=== PATIENT | female | born 1940 | race Caucasian/White ===

== ENCOUNTER 2018-03-26 18:36 | Emergency (ER) | payer MEDICARE, OTHER, SELFPAY ==
[2018-03-26 18:37] VITALS: BP 142/73; PULSE 90; RESP 16; TEMP 36.7; O2SAT 93; BMI 38.6
--- NOTE | 2018-03-26 19:26 | ED.VISSUMM ---
- ER Visit Summary Date of Service: 03/26/18 Chief Complaint: Left leg redness History of Present Illness: The patient is a 78 F presenting with left leg redness times 2 days. She complains of mild calf pain. She is able to ambulate. She has redness to the anterior aspect of her left leg. She denies fever. Denies chest pain or shortness of breath. Denies similar complaints in the past. Physical Examination: Vitals are stable. Patient is afebrile. Alert no acute distress. HEENT exam is unremarkable. Lungs are clear and equal bilaterally. Heart is regular rate and rhythm. Abdomen is soft nontender nondistended. Extremities mild left calf tenderness, mild anterior lower extremity erythema with warmth, normal DP/PT pulses Skin is warm and dry. No focal neurologic deficit. Remainder of exam is unremarkable. Emergency Department Course and Treatment: Venous Doppler shows no evidence of DVT. Patient is given Keflex and a prescription for Keflex. She has an appointment with her primary care physician on Sunday. She is advised to keep this appointment. She is advised to return to the ED for any worsening complaints. Disposition: Discharge home Impression: Left lower extremity cellulitis This note was generated with [employer] dictation software. It may contain incorrect words, spelling, and punctuation that were not noted in review of the chart prior to signing ED Disposition - Plan for ED Patient: Chief Complaint: Cellulitis Referrals: Janice Nichols MD [Primary Care Provider] -
--- NOTE | 2018-03-26 19:29 | US_ITS ---
STUDY: VENOUS DOPPLER ULTRASOUND - LEFT LOWER EXTREMITY REASON FOR EXAM: Female, 78 years old. Left lower extremity redness. TECHNIQUE: Ultrasound evaluation of the deep vein system to include plaza-scale imaging and compression was performed. Plaza-scale imaging and Doppler sonographic evaluation, including duplex spectral analysis and qualitative color flow sonography, was performed. COMPARISON: None. FINDINGS: Common Femoral Vein: Normal compression, spontaneity and augmentation. Normal color Doppler. Common Femoral Vein/Greater Saphenous Junction: Normal compression, spontaneity and augmentation. Normal color Doppler. Femoral Proximal: Normal compression, spontaneity and augmentation. Normal color Doppler. Femoral Middle: Normal compression, spontaneity and augmentation. Normal color Doppler. Femoral Distal: Normal compression, spontaneity and augmentation. Normal color Doppler. Popliteal Vein: Normal compression, spontaneity and augmentation. Normal color Doppler. Posterior Tibial Vein: Normal compression. Peroneal Vein: Normal compression. US/Venous Duplex Imag/Limited/Uni IMPRESSION: No demonstrated deep vein thrombosis. Electronically Signed: Katharina Madrid MD at 20:14 EDT Tel , Service support ,
--- NOTE | 2018-03-26 20:35 | ED.DEP ---
ED Disposition - Plan for ED Patient: Chief Complaint: Cellulitis Instructions: Discharge Instructions for Cellulitis Prescriptions: Cephalexin [Keflex] 500 mg PO Q6 #40 capsule Referrals: Janice Nichols MD [Primary Care Provider] -
[2018-03-26] MEDS: Cephalexin 250 MG Capsule 500 MG PO (20:38)
[2018-03-26 20:41] VITALS: PULSE 76; RESP 18
== END 2018-03-26 20:42 | disposition home or self-care (01) ==
PROVIDERS: Emergency Provider Emergency Medicine; Family Provider Family Medicine; PCP Family Medicine
DX: L03.116 Cellulitis of left lower limb (principal); M79.662 Pain in left lower leg; I10 Essential (primary) hypertension; Z79.899 Other long term (current) drug therapy
CPT/HCPCS: 93971; 99283

== ENCOUNTER → 2018-04-01 09:58 | Outpatient (CLI) | payer MEDICARE, OTHER, SELFPAY ==
[2018-04-01 12:54] LABS: Anion Gap 7 (5-15); BUN 17 mg/dL (7-18); BUN/Creat Ratio 21.7 RATIO (10-20); Calcium,Total 8.8 mg/dL (8.5-10.1); Chloride 105 mmol/L (98-107); Cholesterol 156 mg/dL (200); Creatinine, Serum 0.78 mg/dL (0.55-1.02); EST Glomerular Filtration Rate 75 mL/min (>60); Est Glom Filt Rate - Afr Amer 91 mL/min (>60); Glucose 90 mg/dL (74-106); High Density Lipoprotein 45 mg/dL; Potassium 4.1 mmol/L (3.5-5.1); Sodium Level 141 mmol/L (136-145); Thyroid Stim Hormone (TSH) 2.53 uIU/mL (0.358-3.74); Triglycerides 113 mg/dL; Very Low Density Lipoprotein 23 mg/dL (5-40)
== END ==
PROVIDERS: Family Provider Family Medicine; PCP Family Medicine; Visit Provider Family Medicine
DX: I10 Essential (primary) hypertension (principal); E03.9 Hypothyroidism, unspecified
CPT/HCPCS: 36415; 80048; 80061; 84436; 84443

== ENCOUNTER → 2018-04-04 08:43 | Outpatient (CLI) | payer MEDICARE, OTHER, SELFPAY ==
--- NOTE | 2018-04-04 08:44 | BI_ITS ---
MAMMOGRAPHY - BILATERAL SCREENING REASON FOR EXAM: Female, 78 years old. Routine annual screening examination. PERTINENT HISTORY: Sister with breast cancer. TECHNIQUE: Digital bilateral breast berenice (3D mammographic acquisition) in the CC and MLO projections. 2-D mediolateral oblique (MLO) and craniocaudad (CC) views of both breasts were obtained. CAD: Full Field Digital Mammography with Computer Added Detection was performed. COMPARISON: Comparison is made with prior study dated March 21, 2017 and March 20, 2016. FINDINGS: Breast Composition: The breasts are almost entirely fatty. There are no dominant masses or suspicious calcifications. Stable 4 mm well-defined nodule in the anterior medial portion of the left breast. Stable appearance of the small bilateral axillary lymph nodes. No other significant abnormalities are identified. There has been no significant change since the prior study. BI/SCREENING MAMM (CAD), BILAT IMPRESSION: Stable bilateral screening mammogram. Yearly follow-up mammogram recommended. (A) ASSESSMENT CATEGORY: BIRADS Category 2: Benign. A letter regarding these results will be sent to the patient by the facility within 30 days. Approximately 10% of breast cancers are not detected by mammography. A normal mammogram should not delay biopsy of a clinically suspicious abnormality. [id number] Electronically Signed: Devaughn Bruno MD at 9:51 EDT Tel [phone], Service support ,
== END ==
PROVIDERS: Family Provider Family Medicine; PCP Family Medicine; Referring Provider Family Medicine; Visit Provider Family Medicine
DX: Z12.31 Encounter for screening mammogram for malignant neoplasm of breast (principal)
CPT/HCPCS: 77063; 77067

== ENCOUNTER 2018-04-26 02:48 | Observation (INO) | payer MEDICARE, OTHER, SELFPAY ==
[2018-04-26] VITALS (18 sets, daily range): BP systolic 136–185; BP diastolic 51–89; PULSE 71–105; RESP 16–20; TEMP 36.3–37.4; O2SAT 93–98; BMI 38.6; BMI 37.4
--- NOTE | 2018-04-26 02:51 | ED.RN ---
RN CALLED FOR EKG, PULLED OLD EKGS FOR
--- NOTE | 2018-04-26 02:57 | EKG12_ITS ---
Test Reason : CP Blood Pressure : / mmHG Vent. Rate : 106 BPM Atrial Rate : 106 BPM P-R Int : 194 ms QRS Dur : 088 ms QT Int : 340 ms P-R-T Axes : 056 -13 109 degrees QTc Int : 451 ms Sinus tachycardia Inferior infarct , age undetermined Abnormal ECG Confirmed by MAHAD ANG, CHRIS ([id number]), editor magazine MARK SANZ ([id number]) on 05/01/2018 11:27:41 AM Referred By: FLACA Confirmed By:CHRIS TOBIN MD
--- NOTE | 2018-04-26 02:57 | CT_ITS ---
HISTORY: CHEST PAIN RADIATING INTO BACK SINCE 10 PM LAST NIGHT BUT WORSE THIS AM,ELEVATED BP AND HEART RATEHX:HTN,GERD,HYPOTHYROID TECHNIQUE: Helically acquired images were obtained of the chest following IV contrast as per pulmonary angiogram protocol with 3D reconstructions. A radiation dose optimization technique was used for this scan. IV Contrast dosage and agent: 100 cc Isovue-370 contrast COMPARISON: None FINDINGS: The main, segmental, and visualized subsegmental pulmonary arteries show normal opacification and appearance. No PE. Thoracic aorta is atherosclerotic and normal in caliber. No aneurysm. No pericardial effusion. Borderline cardiomegaly. Multiple mediastinal lymph nodes including involvement of the prevascular, and AP window regions with lymph nodes borderline enlarged measuring up to 1.1 cm in the short axis. Left hilar borderline lymph nodes, as well. Both lungs show widespread mosaic attenuation as seen with air trapping/bronchiolitis. Subpleural interstitial scarring within the left upper lobe. Right upper lobe low-grade infiltrate or scarring. No pleural effusion. No bronchiectasis. CT/CTA Chest W/WO Contrast IMPRESSION: 1. No CT evidence of pulmonary embolic disease. Borderline cardiomegaly. 2. Bilateral mosaic lung attenuation in keeping with air trapping/bronchiolitis together with subpleural mild interstitial scarring. 3. Right upper lobe patchy infiltrate or scarring. 4. Borderline enlarged mediastinal and left outer lymph nodes. Individualized dose optimization techniques were used for this CT. at 0405 Reported and signed by: Jairo Power MD Electronically Signed: Jairo Power, at 4:03 EST Tel , Service support ,
--- NOTE | 2018-04-26 03:03 | ED.DCSUM_ITS ---
- ER Visit Summary Date of Service: 04/26/18 Chief Complaint: Chest pain History of Present Illness: The patient is a 78 F who presents with a 5-hour history of chest pain that she describes as sharp stabbing aching and pressure- like all together. She claims of severe pain radiating to her back. It eased up quite a bit upon EMS arrival. She received nitroglycerin and aspirin per EMS. Her symptoms are only mild now. Other than the radiation into her back she has no other symptoms. She has no breathing difficulty, she has no cough or congestion. She has no abdominal pain. No recent fever or chills. Physical Examination: Not appear in acute distress. She is conversing and laughing with the paramedics and nursing staff as I walk in Moist mucous membranes, no obvious facial deformity No C-spine tenderness supple neck. Regular rate and rhythm without any obvious murmurs. Pulses are equal in all 4 extremities Clear lungs bilaterally speaking in full sentences without any obvious respiratory distress Abdomen soft and nontender no guarding or rebound Moves all extremities without any difficulty or pain. Skin does not show any obvious rashes or lesions, no trauma. Alert oriented ?3 with no gross focal deficit Emergency Department Course and Treatment: Due to the radiation to her back I did a CT angiogram which was negative. Troponin and EKG were unremarkable. Because of the radiation to her back I also did a lipase and LFTs are on entire workup was negative. She appears well and improved with 2 mg of morphine and she is now asymptomatic. I believe she needs a cardiac workup inpatient. I will admit. Admit in stable condition Impression: Chest pain This note was generated with [employer] dictation software. It may contain incorrect words, spelling, and punctuation that were not noted in review of the chart prior to signing ED Disposition - Plan for ED Patient: Chief Complaint: Chest Pain Referrals: Janice Nichols MD [Primary Care Provider] -
[2018-04-26] MEDS: Ondansetron 4 MG/2 ML Vial IV (03:06)
[2018-04-26] MEDS: Morphine 2 MG/ML Syringe IV (03:06)
[2018-04-26 03:08] LABS: International Normalized Ratio 1.1; Prothrombin Time (Protime)PT. 13.7 SECONDS (11.7-14.9)
[2018-04-26 03:10] LABS: Absolute Lymphocyte Count 1.19 X10^3/ul (0.83-4.51); Absolute Neutrophil Count 4.2 X10^3/uL (2.0-7.7); Basophil# 0.04 X10^3/uL; Basophil% 0.6 % (0-1); Eosinophil# 0.41 X10^3/uL; Eosinophils% 6.5 % (0-5); Hematocrit 42.9 % (37-47); Hemoglobin 14.2 g/dl (12.0-15.0); Lymphocyte # 1.19 X10^3/ul (4.0); Lymphocyte % 18.8 % (19-41); Mean Corp Hgb Conc 33.1 g/gl (32-36); Mean Corpuscular Volume 90.5 fL (81-99); Monocyte# 0.44 X10^3/uL; Neutrophil # 4.24 X10^3/uL (2.7-7.7); Neutrophil % 66.9 % (47-70); Platelet Count 146 K/mm3 (150-450); RBC Distribution Width CV 14.1 % (11.6-14.6); RBC Distribution Width SD 46.3 fl (35.1-43.9); Red Blood Count 4.74 M/mm3 (4.2-5.4); White Blood Count 6.3 K/mm3 (4.4-11.0)
[2018-04-26 03:11] LABS: POSITIVE COUNT NO; POSITIVE DIFFERENTIAL NO; POSITIVE MORPHOLOGY NO
[2018-04-26 03:25] LABS: Anion Gap 10 (5-15); BUN 23 mg/dL (7-18); BUN/Creat Ratio 30.5 RATIO (10-20); Calcium,Total 8.5 mg/dL (8.5-10.1); Chloride 108 mmol/L (98-107); Creatinine, Serum 0.75 mg/dL (0.55-1.02); EST Glomerular Filtration Rate 79 mL/min (>60); Est Glom Filt Rate - Afr Amer 95 mL/min (>60); Glucose 129 mg/dL (74-106); Potassium 3.6 mmol/L (3.5-5.1); Sodium Level 143 mmol/L (136-145); Thyroid Stim Hormone (TSH) 3.75 uIU/mL (0.358-3.74)
[2018-04-26 03:46] LABS: AST(SGOT) 25 U/L (15-37); Alanine Aminotransfer ALT/SGPT 30 U/L (13-56); Albumin, Serum 3.8 g/dL (3.2-5.0); Alkaline Phosphatase 99 U/L (45-117); Bilirubin, Direct 0.13 mg/dL (0.00-0.30); Globulin 3.7 g/dL (2.2-4.2); Lipase 72 U/L (73-393); Protein, Total 7.5 g/dL (6.4-8.2)
--- NOTE | 2018-04-26 04:22 | PCM.HP.STD ---
Problem List (1) Chest pain Status: Acute History of Present Illness Date of Admission: 04/26/18 Chief Complaint: chest pain The patient is a 78 year old F with a significant history of hypertension and hypothyroidism who presented with excruciating progressively worsening chest pain that started 5 hours prior to her presentation at the emergency departments. Her symptoms started while she was at rest. She describes the pain as heaviness and pressure. The pain radiated to her back. Associated with symptoms is nausea without vomiting; and anxiety. Nitroglycerin given by the squad relieved her chest pain. Also, she reports that her chest pain was relieved when after an EKG paramedics told her that she was not having a heart attack. She denies any aggravating factor. Also patient had 3 bowel movements close to when she had her chest pain; and that was unusual for her. She ate light food about 5 hours before her symptoms started. She has no personal history of heart disease. However, she reported her father had open heart surgery when he was in his early sixties. His brother had open heart surgery when he was in his late 60s. And she has multiple uncles that have had open heart surgeries. Further; her cousin from heart attack at ager 65. Past Medical History Medical History: Medical History (Last Updated 04/26/18 @ 05:17 by Osmani Mathew MD) Hypothyroidism E03.9 HTN (hypertension) I10 Allergies meperidine [From Demerol] Allergy (Verified 04/26/18 02:53) I JUST GO GOOFY Home Medications: Ambulatory Orders Medication Instructions Recorded Amlodipine [Norvasc] 10 mg PO DAILY 03/26/18 Levothyroxine [Synthroid] 50 mcg PO DAILY 03/26/18 Loratadine [Claritin] 10 mg PO DAILY 03/26/18 Surgical History: hysterectomy, total knee arthroplasty - total knee replacement on right side; and partial knee replacement on the left. Lives: Spouse/ Significant Other Smoking Status: Never smoker Alcohol: Occasional - *Family History Maternal History Items: Heart Disease Paternal History Items: Heart Disease Review of Systems Constitutional: Denies: Chills, Fever, Weight Change HEENT: Denies: Head Aches, Sinus Congestion, Sinus Drainage Cardiovascular: Reports: Chest Pain. Denies: Palpitations Respiratory: Denies: Cough, Shortness of breath at rest, Sputum production Gastrointestinal: Reports: Nausea. Denies: Abdominal Pain, Vomiting Genitourinary: Denies: Dysuria Musculoskeletal: Denies: Joint Pain, Joint Tenderness Skin: Denies: Rash, Wounds Neurological: Denies: Numbness, Tingling, Focal weakness Psychiatric: Denies: Anxiety, Depression, Homicidal Ideations, Suicidal Ideations Hematologic/ Lymphatic: Denies: Easy Bruising, Easy Bleeding VTE Information - Inpt Only VTE Present on Admission: No VTE Mechan Device Prophylaxis: None VTE Pharm Prophylaxis ordered?: Yes Patient Problems: Active and Suspected Problems Chest pain (Acute) - Physical Exam General: Alert, Oriented x3, Cooperative HEENT: Atraumatic, PERRLA, EOMI, Normocephalic Neck: Supple, No JVD, Negative Carotid Bruits Lungs: Clear to auscultation, Normal air movement Cardiovascular: Regular rate, No murmurs Abdomen: Bowel Sounds Present, Soft, Non Tender Extremities: No edema, Capillary Refill Less than 3 Seconds Skin: No rashes, No breakdown Musculoskeletal: No Tenderness to Palpation of Joints or Extremities Neurological: Cranial nerves II-XII grossly intact Psych/Mental Status: Normal Affect, Appropriate Vital Signs Temp Pulse Resp BP Pulse Ox 97.7 F L 95 20 H 165/67 H 97 04/26/18 02:49 04/26/18 04:04 04/26/18 04:04 04/26/18 04:04 04/26/18 04:04 Oxygen Flow Rate (L/min) 2 Oxygen Delivery Method Nasal Cannula Weight: 108.6 kg Body Mass Index (BMI) 38.6 Laboratory Tests Past 24 Hrs 04/26/18 04/26/18 04/26/18 02:55 02:55 02:55 WBC 6.3 RBC 4.74 Hgb 14.2 Hct 42.9 MCV 90.5 MCH 30.0 MCHC 33.1 RDW 14.1 RDW Differential 46.3 H Plt Count 146 L MPV 10.0 Immature Gran % (Auto) 0.200 Neut % (Auto) 66.9 Lymph % (Auto) 18.8 L [place] % (Auto) 7.0 Eos % (Auto) 6.5 H Baso % (Auto) 0.6 Absolute Neuts (auto) 4.2 Absolute Lymphs (auto) 1.19 Total Counted Not Reportable PT 13.7 INR 1.1 Sodium 143 Potassium 3.6 Chloride 108 H Carbon Dioxide 25.0 Anion Gap 10 BUN 23 H Creatinine 0.75 Estim Creat Clear Calc 42.00 Est GFR (MDRD) Af Amer 95 Est GFR (MDRD) Non-Af 79 BUN/Creatinine Ratio 30.5 H Glucose 129 H Calcium 8.5 Total Bilirubin Direct Bilirubin AST ALT Alkaline Phosphatase Troponin I < 0.015 Total Protein Albumin Globulin Lipase TSH 3.75 H 04/26/18 02:55 WBC RBC Hgb Hct MCV MCH MCHC RDW RDW Differential Plt Count MPV Immature Gran % (Auto) Neut % (Auto) Lymph % (Auto) [place] % (Auto) Eos % (Auto) Baso % (Auto) Absolute Neuts (auto) Absolute Lymphs (auto) Total Counted PT INR Sodium Potassium Chloride Carbon Dioxide Anion Gap BUN Creatinine Estim Creat Clear Calc Est GFR (MDRD) Af Amer Est GFR (MDRD) Non-Af BUN/Creatinine Ratio Glucose Calcium Total Bilirubin 0.40 Direct Bilirubin 0.13 AST 25 ALT 30 Alkaline Phosphatase 99 Troponin I Total Protein 7.5 Albumin 3.8 Globulin 3.7 Lipase 72 L TSH Assessment/Plan All Active Problems Chest pain (Acute) The patient is a 78 year old F with a significant history of hypertension and hypothyroidism who presented with typical chest pain. Chest pain Differential diagnosis include cardiac origin of chest pain. Less likely indigestion. Lipase unremarkable. Admit to a monitored bed on PCU CTA Chest independently reviewed does not show any dissection or PE EKG independently reviewed confirms Q waves in inferior leads unchanged from that of 2014. Review of old records shows that outpatient lipid panel on 04/01/2018 was unremarkable. At that time her triglyceride was 113; cholesterol was 156; LDL 99; and HDL was 50. Received ASA 324mg from paramedics; and nitroglycerin. Received Morphine IV and Zofran at the ED. Morphine as needed; and Zofran as needed ordered. ASA 81 mg p.o. daily SL NTG 0.4 mg prn as needed for chest pain High intensity statin ordered. Serial cardiac enzymes Stat EKG as needed for chest pain Chemical Stress test in the AM if the cardiac enzymes are negative. Patient had bilateral knee replacements so treadmill stress test was ordered. N.p.o. before stress test. Hypothyroidism TSH on admission was 3.75 (normal 0.358-3.74) Home Synthroid continued. Hypertension Blood pressure at admission was not within goal. Amlodipine continued As needed hydralazine ordered. Eosinophilia Chronic. DVT prophylaxis Subcutaneous heparin. Code Visit OBSV E&M: [id number] Initial observation care L3
--- NOTE | 2018-04-26 05:08 | EKG12_ITS ---
Test Reason : ADM EKG Blood Pressure : / mmHG Vent. Rate : 093 BPM Atrial Rate : 093 BPM P-R Int : 194 ms QRS Dur : 084 ms QT Int : 374 ms P-R-T Axes : 030 -17 051 degrees QTc Int : 465 ms Normal sinus rhythm Minimal voltage criteria for LVH, may be normal variant Inferior infarct (cited on or before 04-APR-2010) Abnormal ECG When compared with ECG of 19-DEC-2013 13:52, No significant change was found Confirmed by MAHAD ANG, CHRIS ([id number]), book or script editor MARK SANZ ([id number]) on 05/03/2018 2:01:29 PM Referred By: CHEL Confirmed By:CHRIS TOBIN MD
[2018-04-26] MEDS: Aspirin E.C. 81 MG Tablet PO (06:19)
[2018-04-26] MEDS: Levothyroxine 50 MCG Tablet PO (06:19)
[2018-04-26] MEDS: Atorvastatin Calcium 40 MG Tablet PO (06:19)
[2018-04-26 06:40] LABS: Partial Thromboplast Time 36.1 Seconds (24.1-36.2)
[2018-04-26 06:51] LABS: Anion Gap 9 (5-15); BUN 19 mg/dL (7-18); BUN/Creat Ratio 28.1 RATIO (10-20); Calcium,Total 8.5 mg/dL (8.5-10.1); Chloride 108 mmol/L (98-107); Creatinine, Serum 0.68 mg/dL (0.55-1.02); EST Glomerular Filtration Rate 89 mL/min (>60); Est Glom Filt Rate - Afr Amer 108 mL/min (>60); Glucose 110 mg/dL (74-106); Potassium 3.8 mmol/L (3.5-5.1); Sodium Level 143 mmol/L (136-145)
[2018-04-26] MEDS: amLODIPine 10 MG Tablet PO (09:35)
[2018-04-26] MEDS: Loratadine 10 MG Tablet PO (09:35)
[2018-04-26] MEDS: Heparin Injection (Vial) 5,000 UNIT/ML VIAL 5000 UNIT SC ×2 (09:35→21:37)
--- NOTE | 2018-04-26 12:12 | STRESSREP ---
Stress Test Report Date: 04/26/2018 Procedure: Pharmacologic stress nuclear imaging study Indications: Chest pain Consent: Per the patient Procedure: The patient underwent pharmacologic (Regadenoson) evaluation with a peak heart rate of 107 beats per minute (76 predicted maximal heart rate) and a peak blood pressure of 160/98 mmHg. The baseline ECG demonstrated normal sinus rhythm. The peak pharmacologic ECG demonstrated no obvious ECG changes. There were rare PVCs during infusion and recovery. There was no complaint of chest discomfort during pharmacologic infusion or recovery. The examination was discontinued secondary to completion of protocol. Impression: 1. Pharmacologic (Regadenoson) evaluation 2. Peak pharmacologic ECG with no obvious. 3. There were rare PVCs during infusion and recovery. 4. Nuclear images pending Myocardial perfusion imaging study: Technique: The patient was injected with 12 millicuries of technetium 99m Cardiolite and subsequently rest SPECT Cardiolite nuclear imaging was obtained in the horizontal long, vertical long, and short axis views. The patient underwent pharmacologic (Regadenoson) evaluation with a peak heart rate of 107 beats per minute (76 % percent predicted maximal heart rate) and a peak blood pressure of 160/98 mmHg. The patient was injected with 36 millicuries of technetium 99m Cardiolite and subsequently stress SPECT Cardiolite nuclear imaging was obtained in the horizontal long, vertical long, and short axis views. A gated Cardiolite study at peak stress was obtained. Interpretation: Rest and stress SPECT Cardiolite nuclear imaging status post realignment, normalization, pre-attenuation correction, and post attenuation correction demonstrate at pre-attenuation correction the appearance of relative uniform tracer uptake at rest and status post stress the notation of an area of diminished tracer uptake in portions of the mid towards distal lateral segments. Status post attenuation correction there appears to be relative uniform tracer uptake at rest and subtle decreased tracer uptake in portions of the mid lateral segments. There are similar type findings on the resting and stress polar map images. There is end systolic thickening and brightening. The gated Cardiolite study demonstrates myocardial thickening and inward wall motion. The reported LVEF is 65 %. Impression: 1. Test and stress SPECT cardio nuclear imaging pre-and post attenuation correction both demonstrate areas, status post stress, of diminished tracer uptake in portions of the mid towards distal lateral segments which appear to be somewhat more prominent pre-attenuation correction then post attenuation correction concerning for an area of stress-induced myocardial ischemia. 2. The gated Cardiolite study reports an LVEF of Ext 65 %. This note was generated with [employer] software. It may contain incorrect words, spelling, and punctuation that were not noted in checking the note before signing.
--- NOTE | 2018-04-26 13:29 | US_ITS ---
STUDY: ABDOMINAL ULTRASOUND REASON FOR EXAM: Female, 78 years old. Diffuse abdominal pain TECHNIQUE: Transabdominal ultrasound was performed with real-time and static arana scale imaging. TECHNICAL QUALITY: Limited. Examination limited by bowel gas. COMPARISON: None. FINDINGS: Liver: The liver measures 17.4 cm. There is increased echogenicity consistent with fatty infiltration. The bile ducts are within normal limits. There is hepatic color flow. The direction of portal flow is hepatopetal. There is no demonstrated mass lesion. Portal vein measurement: Gallbladder: Normal distended gallbladder. The gallbladder wall measures 6 mm. There is a negative sonographic Lin's sign. There is pericholecystic fluid. There are multiple echogenic structures within the gallbladder, consistent with multiple gallstones. Common Bile Duct (C.B.D.): The common bile duct measures 6 mm. Pancreas: Normal size of the head, body and tail of the pancreas. There is normal echogenicity of the pancreas. There is no demonstrated pancreatic mass or cyst. Spleen: Not visualized. Right Kidney: Normal size of the right kidney. The right kidney measures 10.5 x 4.9 x 4.5 cm. Normal renal cortex. The right cortex measures 1.3 cm. There is no demonstrated renal mass or cyst. There is no right hydronephrosis. Left Kidney: Normal size of the left kidney. The left kidney measures 10.1 x 5.5 x 5.2 cm. Normal renal cortex. The left cortex measures 1.1 cm. There is no demonstrated renal mass or cyst. There is no left hydronephrosis. Aorta: Tapers normally I.V.C.: The IVC is patent. There is no ascites. US/Abdomen Complete IMPRESSION: Cholelithiasis with gallbladder wall thickening and pericholecystic fluid. Findings suggestive of cholecystitis. Fatty infiltration of liver, no discrete lesion Electronically Signed: Carl Ontiveros MD at 16:32 EST , Service support ,
--- NOTE | 2018-04-26 13:30 | PCM.CONS.C ---
Problem List (1) Abnormal stress test Status: Acute Reason for Consult Date of Consultation: 04/26/18 History of Present Illness: The patient is a 78 year old F with past medical history significant for hypertension and hypothyroidism. She has been admitted to the hospital with complaints of chest pain. However upon elaborating on that, the patient describes her discomfort as upper mid abdominal. According to her, the discomfort felt sharp and gradually built up in intensity. It radiated to the right side and to her back. No associated diaphoresis. No shortness of breath. She did have some dry heaves but no vomiting. Health nauseous. Cording to her, the symptoms lasted continuously for about 5 hours. She then called the EMS. According to her, the EMS did an EKG for her and told her that they did not think that she was having a heart attack. Patient, this reassurance alleviated her symptoms to a greater extent. She did have some residual discomfort when she was brought to the emergency room. Per patient, she did not have any relief with sublingual nitroglycerin. She was given morphine in the emergency room. Those relieved her discomfort. Patient denies any exacerbating factors. According to her, she has never had any exertional chest discomfort or tightness. Denies orthopnea or PND. He was recently admitted to the hospital with cellulitis. Patient had pharmacological stress test done today. It is reported as showing several mild lateral ischemia. [] Past Medical History Allergies/Adverse Reactions: Allergies meperidine [From Demerol] Allergy (Verified 04/26/18 02:53) I JUST GO GOOFY Home Medications: Ambulatory Orders Medication Instructions Recorded Amlodipine [Norvasc] 10 mg PO DAILY 03/26/18 Levothyroxine [Synthroid] 50 mcg PO DAILY 03/26/18 Loratadine [Claritin] 10 mg PO DAILY 03/26/18 Surgical History: hysterectomy, total knee arthroplasty - total knee replacement on right side; and partial knee replacement on the left. - *Family History Maternal History Items: Heart Disease Paternal History Items: Heart Disease Lives: Spouse/ Significant Other Smoking Status: Never smoker Alcohol: Occasional Review of Systems - Review of Systems General: Denies: Fever, Chills HEENT: Denies: Head Aches, Sore Throat Cardiovascular: Denies: Chest Discomfort, Chest Discomfort at Rest, Chest Discomfort with Exertion, Orthopnea, PND Respiratory: Denies: Cough, Hemoptysis, Shortness of Breath, Wheezing Gastrointestinal: Reports: Abdominal Discomfort - As noted in history of presenting illness, Nausea. Denies: Jaundice, Emesis, Hematemesis Neurological: Denies: History of TIA, History of CVA Endocrine: Reports: - - History of hypothyroidism Hematologic/ Lymphatic: Denies: Easy Brusing, Easy Bleeding Subjectve: Pleasant lady. Comfortable. No apparent distress Objective: Vital Signs Temp Pulse Resp BP Pulse Ox 98.0 F 76 16 155/55 H 95 04/26/18 09:30 04/26/18 10:55 04/26/18 09:30 04/26/18 09:30 04/26/18 09:30 Oxygen Flow Rate (L/min) 2 Oxygen Delivery Method Nasal Cannula Weight: 105.2 kg Body Mass Index (BMI) 37.4 General: Awake, Alert, Oriented x 3, No Acute Distress HEENT: Atraumatic, Normocephalic Oral: Moist Mucosa Neck: Supple Lungs: Clear to auscultation Cardiovascular: Regular Rhythm, Normal S1, Normal S2, No Murmurs Abdomen: Bowel Sounds Present, Soft, - - Mild tenderness umbilical region. According to her, this is the same discomfort she had when she came in. Much lower in intensity though Neurological: No Focal Motor or Sensory Deficit Psych/Mental Status: Appropriate 04/26/18 02:55: WBC 6.3, RBC 4.74, Hgb 14.2, Hct 42.9, MCV 90.5, MCH 30.0, MCHC 33.1, RDW 14.1, RDW Differential 46.3 H, Plt Count 146 L, MPV 10.0, Immature Gran % (Auto) 0.200, Neut % (Auto) 66.9, Lymph % (Auto) 18.8 L, [place] % (Auto) 7.0, Eos % (Auto) 6.5 H, Baso % (Auto) 0.6, Absolute Neuts (auto) 4.2, Total Counted Not Reportable 04/26/18 02:55: Sodium 143, Potassium 3.6, Chloride 108 H, Carbon Dioxide 25.0, Anion Gap 10, BUN 23 H, Creatinine 0.75, Est GFR (MDRD) Af Amer 95, Est GFR (MDRD) Non-Af 79, BUN/Creatinine Ratio 30.5 H, Glucose 129 H, Calcium 8.5, Troponin I < 0.015 04/26/18 02:55: PT 13.7, INR 1.1 04/26/18 02:55: Total Bilirubin 0.40, Direct Bilirubin 0.13 04/26/18 02:55: APTT 36.1 04/26/18 05:45: Sodium 143, Potassium 3.8, Chloride 108 H, Carbon Dioxide 26.0, Anion Gap 9, BUN 19 H, Creatinine 0.68, Est GFR (MDRD) Af Amer 108, Est GFR (MDRD) Non-Af 89, BUN/Creatinine Ratio 28.1 H, Glucose 110 H, Calcium 8.5 04/26/18 05:45: Troponin I < 0.015 04/26/18 09:28: Troponin I < 0.015 Rhythm: Normal sinus rhythm EKG: Normal sinus rhythm. Probably old inferior IN. ECHO: Stress Test: Reported as concerning for mid to distal lateral ischemia. Normal LV systolic function Cardiac Cath: PCI: CT Surgery: Holter monitor: EPS: PPM: CXR: Chest CT Scan: Assessment/Plan 1. Abdominal discomfort. Patient describes her symptoms as more in the upper umbilical region of her abdomen. She points to that area with her hand. Also radiation to the right side and into the back. Still mildly tender on palpation of her mid abdominal region. Consider workup for abdominal cause. Consider CT versus ultrasound. 2. Abnormal stress test. The patient likely has underlying coronary artery disease. I doubt however that her present symptoms are related to her cardiac condition. Discussed at length with the patient. Medical therapy versus invasive diagnostic and therapeutic options discussed. It was agreed with mutual consent to start her on medical therapy. If she becomes symptomatic, then will consider cardiac catheterization and coronary angiography. Start on aspirin 81 mg once daily. Low-dose beta blockers. Continue amlodipine. 3. Atherosclerotic vascular disease noted on CT scan of the chest. Recommend checking lipid profile. Target LDL cholesterol less than 100 mg/dL. Follow as per internal medicine 4. Hypertension. Continue amlodipine. Start on low-dose beta blockers. Increase as tolerated. 5. History of hypothyroidism
--- NOTE | 2018-04-26 14:30 | NURSING ---
Pt to U/S via OUTBOUND TELEMARKETING REPRESENTATIVE
[2018-04-26] MEDS: Metoprolol Tartrate 25 MG Tablet 12.5 MG PO ×2 (15:37→21:37)
--- NOTE | 2018-04-26 17:41 | PCM.HOSP.N ---
Hospitalist Note Patient seen and examined today, she had a stress test that indicates possible ischemia, I had interventional cardiology see her-Dr. Valle-he states it is probable she has coronary artery disease but he is more concerned about her abdominal discomfort that she was describing to him. I had a gallbladder and abdominal ultrasound done today at his request, it shows what appears to be cholecystitis. I then called Dr. Jones, he will see the patient in the morning. On examination today, patient's right upper quadrant is not tender to palpation. I explained all this to the patient and the patient's family was in the room and she appears to understand. Patient will be n.p.o. after 2 AM tomorrow morning and repeat liver profile and CBC will be obtained in the morning. Cardiology placed her on cardiac medications.
[2018-04-27 03:00] VITALS: PULSE 82
[2018-04-27 03:30] VITALS: BP 128/53; PULSE 88; RESP 14; TEMP 37.3; O2SAT 95
[2018-04-27 06:10] LABS: Absolute Lymphocyte Count 1.53 X10^3/ul (0.83-4.51); Basophil# 0.03 X10^3/uL; Basophil% 0.4 % (0-1); Eosinophil# 0.58 X10^3/uL; Eosinophils% 8.6 % (0-5); Hemoglobin 13.2 g/dl (12.0-15.0); Lymphocyte # 1.53 X10^3/ul (4.0); Lymphocyte % 22.7 % (19-41); Mean Corp Hgb Conc 31.4 g/gl (32-36); Mean Corpuscular Hgb 29.1 pg (27.0-32.0); Mean Corpuscular Volume 92.7 fL (81-99); Mean Platelet Vol. 10.4 fl (6.2-12.0); Monocyte# 0.62 X10^3/uL; Monocyte% 9.2 % (0-10); Neutrophil # 3.97 X10^3/uL (2.7-7.7); Platelet Count 144 K/mm3 (150-450); RBC Distribution Width CV 14.3 % (11.6-14.6); RBC Distribution Width SD 48.2 fl (35.1-43.9); Red Blood Count 4.53 M/mm3 (4.2-5.4); White Blood Count 6.7 K/mm3 (4.4-11.0)
[2018-04-27 06:12] LABS: POSITIVE COUNT NO; POSITIVE DIFFERENTIAL NO; POSITIVE MORPHOLOGY NO
[2018-04-27 06:50] VITALS: O2SAT 92
[2018-04-27 06:51] LABS: AST(SGOT) 22 U/L (15-37); Alanine Aminotransfer ALT/SGPT 28 U/L (13-56); Albumin, Serum 3.2 g/dL (3.2-5.0); Alkaline Phosphatase 83 U/L (45-117); Bilirubin, Direct 0.14 mg/dL (0.00-0.30); Globulin 3.5 g/dL (2.2-4.2); Protein, Total 6.7 g/dL (6.4-8.2)
[2018-04-27] MEDS: Levothyroxine 50 MCG Tablet PO (06:56)
[2018-04-27 07:00] VITALS: PULSE 86
[2018-04-27 09:00] VITALS: BP 126/57; PULSE 70; RESP 18; TEMP 37.1; O2SAT 92
--- NOTE | 2018-04-27 09:29 | CON.PCM_ITS ---
Problem List (1) Cholelithiasis Status: Acute Qualifiers: Cholelithiasis location: gallbladder Cholecystitis presence: with cholecystitis Cholecystitis acuity: acute and chronic Biliary obstruction: without biliary obstruction Qualified Code(s): K80.12 - Calculus of gallbladder with acute and chronic cholecystitis without obstruction Reason for Consult Date of Consultation: 04/27/18 History of Present Illness: The patient is a 78 year old F with past medical history significant for hypertension and hypothyroidism. She has been admitted to the hospital with complaints of chest pain. However upon elaborating on that, the patient describes her discomfort as upper mid abdominal. According to her, the dis comfort felt sharp and gradually built up in intensity. It radiated to the right side and to her back. No associated diaphoresis. No shortness of breath. She did have some dry heaves but no vomiting. Health nauseous. Cording to her, the symptoms lasted continuously for about 5 hours. She then called the EMS. According to her, the EMS did an EKG for her and told her that they did not think that she was having a heart attack. Patient, this reassurance alleviated her symptoms to a greater extent. She did have some residual discomfort when she was brought to the emergency room. Per patient, she did not have any relief with sublingual nitroglycerin. She was given morphine in the emergency room. Those relieved her discomfort. Patient denies any exacerbating factors. According to her, she has never had any exertional chest discomfort or tightness. Denies orthopnea or PND. He was recently admitted to the hospital with cellulitis. Patient had pharmacological stress test done yesterday. It is reported as showing several mild lateral ischemia. Patient underwent a gallbladder ultrasound. Findings: Gallbladder: Normal distended gallbladder. The gallbladder wall measures 6 mm. There is a negative sonographic Lin's sign. There is pericholecystic fluid. There are multiple echogenic structures within the gallbladder, consistent with multiple gallstones. Common Bile Duct (C.B.D.): The common bile duct measures 6 mm. Patient was given a diet last night and she is not complaining of any abdominal pain today. She has no nausea or vomiting. Past Medical History Medical History: Medical History (Last Reviewed 04/27/18 @ 09:30 by Logan Jones MD) Hypothyroidism E03.9 HTN (hypertension) I10 Allergies meperidine [From Demerol] Allergy (Verified 04/26/18 02:53) I JUST GO GOOFY Home Medications: Ambulatory Orders Medication Instructions Recorded Amlodipine [Norvasc] 10 mg PO DAILY 03/26/18 Levothyroxine [Synthroid] 50 mcg PO DAILY 03/26/18 Loratadine [Claritin] 10 mg PO DAILY 03/26/18 Surgical History: hysterectomy, total knee arthroplasty - total knee replacement on right side; and partial knee replacement on the left. Lives: Spouse/ Significant Other Smoking Status: Never smoker Alcohol: Occasional - *Family History Maternal History Items: Heart Disease Paternal History Items: Heart Disease Review of Systems Constitutional: Denies: Chills, Fever, Weight Change HEENT: Denies: Dysphasia, Ear Pain, Eye Pain, Head Aches, Hearing Changes, Sore Throat Cardiovascular: Denies: Chest Pain, Chest Pressure, Chest Tightness, Palpitations Respiratory: Denies: Cough, Hemoptysis, Shortness of breath at rest, Shortness of breath upon exertion, Wheezing Gastrointestinal: Denies: Abdominal Pain, Constipation, Diarrhea, Hematemesis, Nausea, Melena, Vomiting Patient Problems: Active and Suspected Problems (Last Reviewed 04/27/18 @ 09:30 by Logan Jones MD) Chest pain (Acute) Abnormal stress test (Acute) Cholelithiasis (Acute) - Physical Exam General: Alert, Oriented x3 Oral: Moist Mucosa Neck: Supple, No JVD Lungs: Clear to auscultation Cardiovascular: Regular rate, Regular Rhythm, No murmurs Abdomen: Bowel Sounds Present, Soft, Non Tender, Non-Distended Extremities: No clubbing, No cyanosis, No edema Neurological: Cranial nerves II-XII grossly intact Vital Signs Temp Pulse Resp BP Pulse Ox 98.8 F 70 18 126/57 H 92 04/27/18 09:00 04/27/18 09:00 04/27/18 09:00 04/27/18 09:00 04/27/18 09:00 Oxygen Flow Rate (L/min) 2 Oxygen Delivery Method Room Air Weight: 231 lb 14.821 oz Body Mass Index (BMI) 37.4 Laboratory Tests Past 24 Hrs 04/26/18 04/27/18 04/27/18 09:28 05:10 05:10 WBC 6.7 RBC 4.53 Hgb 13.2 Hct 42.0 MCV 92.7 MCH 29.1 MCHC 31.4 L RDW 14.3 RDW Differential 48.2 H Plt Count 144 L MPV 10.4 Immature Gran % (Auto) 0.100 Neut % (Auto) 59.0 Lymph % (Auto) 22.7 [place] % (Auto) 9.2 Eos % (Auto) 8.6 H Baso % (Auto) 0.4 Absolute Neuts (auto) 4.0 Absolute Lymphs (auto) 1.53 Total Counted Not Reportable Total Bilirubin 0.50 Direct Bilirubin 0.14 AST 22 ALT 28 Alkaline Phosphatase 83 Troponin I < 0.015 Total Protein 6.7 Albumin 3.2 Globulin 3.5 Assessment/Plan All Active Problems (Last Reviewed 04/27/18 @ 09:30 by Logan Jones MD) Chest pain (Acute) Abnormal stress test (Acute) Cholelithiasis (Acute) At this point I do not think the patient has acute cholecystitis and she has improved since her admission to the hospital. I do believe it is important for her to get her complete cardiac workup so that we can evaluate whether or not we are going to need to take out her gallbladder. I am quite convinced though she will not be able to undergo a general anesthetic until cardiology has most likely done a heart cath on her but I will defer final judgment obviously to brake lining maker. I will see the patient back when she has her complete workup done by Dr. Patel with his findings. I believe the patient can be discharged on a low-fat diet.
--- NOTE | 2018-04-27 09:55 | DCINST_ITS ---
- Discharge Diagnoses Current Active Problems: Current Active and Chronic Problems (Last Reviewed 04/27/18 @ 09:30 by Logan Jones MD) Chest pain (Acute) Abnormal stress test (Acute) Cholelithiasis (Acute) You will use the following diet at home:: No restrictions, Other - avoid fatty foods/fried foods Your liquids should be the consistency of: Regular/Thin Discharge Activity: Return to Normal Activity Weight Bearing Status: Full weight bearing Allergies/Adverse Reactions: Allergies meperidine [From Demerol] Allergy (Verified 04/26/18 02:53) I JUST GO GOOFY Medications to take at Discharge Amlodipine [Norvasc] 10 mg PO DAILY 03/26/18 Levothyroxine [Synthroid] 50 mcg PO DAILY 03/26/18 Loratadine [Claritin] 10 mg PO DAILY 03/26/18 Aspirin E.C. [Ecotrin] 81 mg PO DAILY@0800 tablet 04/27/18 Atorvastatin Calcium [Lipitor] 40 mg PO QHS #30 tablet 04/27/18 Metoprolol Tartrate [Lopressor (beta mirian)] 12.5 mg PO BID #30 tablet 04/27/18 The following prescriptions were given: Atorvastatin Calcium [Lipitor] 40 mg PO QHS #30 tablet Metoprolol Tartrate [Lopressor (beta mirian)] 12.5 mg PO BID #30 tablet Primary Care Physician: Janice Nichols MD [Primary Care Provider] - Please follow up with your Primary Care Physician in: in two weeks Test Results: Test results from this visit will be discussed in further detail at your follow- up appointment, if applicable. Please Follow Up With: Jose Patel MD When: in 2-3 weeks
--- NOTE | 2018-04-28 08:54 | DS.PCM_ITS ---
Discharge Date and Diagnosis Date of Admission: 04/26/18 Date of Discharge: 04/27/18 - Primary Discharge Diagnosis #1 chest pain-etiology unclear #2 cholelithiasis without acute cholecystitis #3 positive stress test suspicious for ischemia #4 hypothyroidism Hospital Course and Treatment Operations: None Procedures: Nuclear stress test Summary of Care Provided: The patient is a 78 year old F who was seen in the emergency room at [facility] with chief complaint of precordial chest pain and upper mid abdominal pain. Workup in the emergency room included cardiac enzymes, and EKG, and a CT of the chest all of which were unremarkable. Patient was placed and observation status on PCU and cardiac enzymes were cycled, these remained normal. She underwent a nuclear stress test which was suspicious for ischemia, she was then seen by cardiology who felt that the patient could have coronary artery disease but recommended a workup for her abdominal pain. She was placed on cardiac medications by cardiology and her ultrasound of her abdomen showed findings suggestive of acute cholecystitis. However, patient had no right upper quadrant abdominal pain on palpation was able to eat meals without discomfort. She was seen in consultation by general surgery who felt that the patient did not have acute cholecystitis but felt that in the future she might need her gallbladder removed. Surgery however was deferred because this was not an emergency and the patient would need to be cleared by cardiology before any cholecystectomy was performed. Physical exam: On examination she appeared in good health and spirits. Vital signs as documented. Skin warm and dry and without overt rashes. Neck without JVD. Lungs clear. Heart exam notable for regular rhythm, normal sounds and absence of murmurs, rubs or gallops. Abdomen unremarkable and without evidence of organomegaly, masses, or abdominal aortic enlargement. Extremities nonedematous. Neuro: Cranial nerves II through XII are grossly intact, no focal motor deficits were noted. Psych: Patient is alert and oriented x3, she does not appear anxious or depressed. On 04/27/18, patient was seen and examined felt to be in stable condition for discharge home. - Physical Exam Vital Signs Temp Pulse Resp BP Pulse Ox 98.8 F 70 18 126/57 H 92 04/27/18 09:00 04/27/18 09:00 04/27/18 09:00 04/27/18 09:00 04/27/18 09:00 Oxygen Flow Rate (L/min) 2 Oxygen Delivery Method Room Air Weight: 105.2 kg Body Mass Index (BMI) 37.4 Discharge Activity: Return to Normal Activity Weight Bearing Status: Full weight bearing Home Medications: Medications to take at Discharge Amlodipine [Norvasc] 10 mg PO DAILY 03/26/18 Levothyroxine [Synthroid] 50 mcg PO DAILY 03/26/18 Loratadine [Claritin] 10 mg PO DAILY 03/26/18 Aspirin E.C. [Ecotrin] 81 mg PO DAILY@0800 tablet 04/27/18 Atorvastatin Calcium [Lipitor] 40 mg PO QHS #30 tablet 04/27/18 Metoprolol Tartrate [Lopressor (beta mirian)] 12.5 mg PO BID #30 tablet 04/27/18 Following Prescrptions Were Given to Patient: Atorvastatin Calcium [Lipitor] 40 mg PO QHS #30 tablet Metoprolol Tartrate [Lopressor (beta mirian)] 12.5 mg PO BID #30 tablet Primary Care Physician: Janice Nichols MD [Primary Care Provider] - Please follow up with your Primary Care Physician in: in two weeks Please Follow Up With: Jose Patel MD When: in 2-3 weeks Please Follow Up With: Jnaice Nichols MD Disposition: Home Minutes spent on discharge:: 26 Patient Condition:: Stable Medical Necessity - Tobacco Use Smoking Status: Never smoker Meaningful Use Info Meaningful Use Diagnoses (Choose all that apply): None applicable Code Visit OBSV E&M: 73649 Observation care discharge
== END 2018-04-27 09:54 | disposition home or self-care (01) ==
LOC: ED 03:12 → PCU 04:50
PROVIDERS: Admitting Provider Hospitalist; Emergency Provider Emergency Medicine; Family Provider Family Medicine; PCP Family Medicine; Visit Provider Internal Medicine
DX: R07.89 Other chest pain (principal); E03.9 Hypothyroidism, unspecified; K80.20 Calculus of gallbladder without cholecystitis without obstruction; Z79.899 Other long term (current) drug therapy; I10 Essential (primary) hypertension; D72.1 Eosinophilia; R94.39 Abnormal result of other cardiovascular function study; I70.0 Atherosclerosis of aorta
CPT/HCPCS: 36415; 71275; 76700; 78452; 80048; 80076; 83690; 84443; 84484; 85025; 85610; 85730; 93005; 93017; 96372; 96374; 96375; 97802; 99218; 99285; A9500; J7030; Q9967; A4216; G0378; J2405; J2785

== ENCOUNTER → 2018-06-12 10:51 | Outpatient (CLI) | payer MEDICARE, OTHER, SELFPAY ==
[2018-06-06 14:30] VITALS: BMI 37.4
[2018-06-12 13:06] LABS: International Normalized Ratio 1.1; Prothrombin Time (Protime)PT. 14.3 SECONDS (11.7-14.9)
[2018-06-12 13:07] LABS: Partial Thromboplast Time 33.9 Seconds (24.1-36.2)
[2018-06-12 13:11] LABS: Absolute Lymphocyte Count 1.76 X10^3/ul (0.83-4.51); Absolute Neutrophil Count 3.3 X10^3/uL (2.0-7.7); Basophil# 0.05 X10^3/uL; Basophil% 0.8 % (0-1); Eosinophils% 8.2 % (0-5); Hematocrit 44.7 % (37-47); Hemoglobin 14.1 g/dl (12.0-15.0); Lymphocyte # 1.76 X10^3/ul (4.0); Lymphocyte % 28.9 % (19-41); Mean Corp Hgb Conc 31.5 g/gl (32-36); Mean Corpuscular Hgb 28.9 pg (27.0-32.0); Mean Corpuscular Volume 91.6 fL (81-99); Mean Platelet Vol. 10.2 fl (6.2-12.0); Monocyte# 0.45 X10^3/uL; Monocyte% 7.4 % (0-10); Neutrophil # 3.34 X10^3/uL (2.7-7.7); Neutrophil % 54.7 % (47-70); POSITIVE COUNT NO; POSITIVE DIFFERENTIAL NO; POSITIVE MORPHOLOGY NO; Platelet Count 171 K/mm3 (150-450); RBC Distribution Width CV 14.1 % (11.6-14.6); RBC Distribution Width SD 47.2 fl (35.1-43.9); Red Blood Count 4.88 M/mm3 (4.2-5.4); White Blood Count 6.1 K/mm3 (4.4-11.0)
[2018-06-12 13:31] LABS: Anion Gap 11 (5-15); BUN 19 mg/dL (7-18); BUN/Creat Ratio 23.3 RATIO (10-20); Calcium,Total 9.2 mg/dL (8.5-10.1); Chloride 106 mmol/L (98-107); Creatinine, Serum 0.82 mg/dL (0.55-1.02); EST Glomerular Filtration Rate 72 mL/min (>60); Est Glom Filt Rate - Afr Amer 87 mL/min (>60); Glucose 86 mg/dL (74-106); Potassium 4.2 mmol/L (3.5-5.1); Sodium Level 143 mmol/L (136-145)
== END ==
PROVIDERS: Family Provider Family Medicine; PCP Family Medicine; Referring Provider Internal Medicine Cardiovascular Disease; Visit Provider Internal Medicine Cardiovascular Disease
DX: R07.9 Chest pain, unspecified (principal); I10 Essential (primary) hypertension; R94.39 Abnormal result of other cardiovascular function study
CPT/HCPCS: 36415; 80048; 85025; 85610; 85730

== ENCOUNTER → 2018-06-13 12:32 | Outpatient (CLI) | payer MEDICARE, OTHER, SELFPAY ==
[2018-06-06 14:30] VITALS: BMI 37.4
--- NOTE | 2018-06-13 12:33 | ECHOD_ITS ---
Reason For Study: Chest Pain Procedure This was a 2D Doppler, Color Flow transthoracic echocardiogram. The exam was of adequate technical quality. Exam performed in department. Left Ventricle Normal LV size. Left ventricular systolic function is normal. The estimated ejection fraction is 60 %. No evidence for diastolic dysfunction. No regional wall motion abnormalities noted. Right Ventricle Normal RV size. Normal systolic function. Atria The left atrium is mildly enlarged. Normal right atrium. No doppler evidence for ASD. Mitral Valve There is mild to moderate mitral annular calcification. Extension of the mitral annular calcification onto the posterior mitral valve leaflet. Trivial mitral valve insufficiency. Tricuspid Valve Normal tricuspid valve. Mild tricuspid valve insufficiency. Right ventricular systolic pressure estimated to be 32 mmHg. Aortic Valve Trisinus/trileaflet aortic valve. Mild focal aortic valve calcification. Pulmonic Valve The pulmonic valve is not well visualized. Great Vessels Normal sized aortic root. Pericardium/Pleural No pericardial effusion. MMode/2D Measurements & Calculations LVIDd: 5.2 cm IVSd: 1.2 cm LVOT diam: 2.0 cm LVIDs: 2.4 cm LVPWd: 0.90 cm LVOT area: 3.2 cm2 RVDd: 3.1 cm FS: 53.8 % Ao root diam: 3.3 cm LAV(MOD-bp): 56.4 ml LA A4 area: 22.8 cm2 LA dimension: 4.2 cm LAV(MOD-bp) Indexed: 26.6 ml/m2 LAV(MOD-sp2): 38.3 ml LAV(MOD-sp4): 68.4 ml RA A4 area: 19.0 cm2 Time Measurements MV dec time: 0.27 sec Doppler Measurements & Calculations MV E max terrell: 68.5 cm/sec Lat Peak E' Terrell: 7.7 cm/sec Med Peak E' Terrell: 5.6 cm/sec MV A max terrell: 113.0 cm/sec E/E' lat: 8.8 E/E' med: 12.2 MV E/A: 0.61 MV V2 max: 128.1 cm/sec MV P1/2t max terrell: 77.9 cm/sec Ao V2 max: 140.8 cm/sec MV max P.6 mmHg MV P1/2t: 87.5 msec Ao max P.9 mmHg MV V2 mean: 57.7 cm/sec MV dec slope: 260.9 cm/sec2 Ao V2 mean: 94.4 cm/sec MV mean P.7 mmHg Ao mean P.0 mmHg MV V2 VTI: 30.0 cm MVA(P1/2t): 2.5 cm2 Ao V2 VTI: 28.8 cm MVA(VTI): 2.3 cm2 RENAY(I,D): 2.4 cm2 RENAY(V,D): 2.1 cm2 LV V1 max: 93.5 cm/sec SV(LVOT): 68.9 ml PA V2 max: 78.5 cm/sec LV V1 max P.5 mmHg LV V1 mean P.8 mmHg LV V1 mean: 62.9 cm/sec LV V1 VTI: 21.4 cm TR max terrell: 244.6 cm/sec TR max P.9 mmHg Interpretation Summary Left ventricular systolic function is normal. The estimated ejection fraction is 60 %. The left atrium is mildly enlarged. There is mild to moderate mitral annular calcification. Extension of the mitral annular calcification onto the posterior mitral valve leaflet. Trivial mitral valve insufficiency. Mild tricuspid valve insufficiency. Mild focal aortic valve calcification. Right ventricular systolic pressure estimated to be 32 mmHg. No evidence for diastolic dysfunction. Ordering Physician: Jose Patel Referring Physician: Jose Patel Performed By: Abhilash Khalil RCS
== END ==
PROVIDERS: Family Provider Family Medicine; PCP Family Medicine; Referring Provider Internal Medicine Cardiovascular Disease; Visit Provider Internal Medicine Cardiovascular Disease
DX: R07.9 Chest pain, unspecified (principal); R94.39 Abnormal result of other cardiovascular function study
CPT/HCPCS: 93306

== ENCOUNTER 2018-06-25 08:11 | Day surgery (SDC) | payer MEDICARE, OTHER, SELFPAY ==
[2018-06-06 14:30] VITALS: BMI 37.4
[2018-06-24 10:54] VITALS: BMI 37.8
--- NOTE | 2018-06-25 13:47 | CL.D_ITS ---
Patient Name: JUAN DAVID LIRA Study Date: 06/25/2018 Performing: Jose Patel MD Ht: 66.14 inches 168 cm : 1940 Wt: 233.69 lbs 106 kg Age: 78 Gender: female BSA: 2.14 PROCEDURE(S) PERFORMED [id number] CLINICAL PROFILE AND INDICATIONS Indications: Suspected CAD Heart Failure: None Stress/Imaging Stress Test w/SPECT MPI: Yes Result: PositiveStress Test with SPECT MPI: Positive Angina Classification Anginal Classification w/in 2 Weeks: No symptoms CAD Presentations: Other: chest pain CONCLUSIONS [place] Multivessel CAD RECOMMENDATIONS Risk factor modification Medical therapy DESCRIPTION OF PROCEDURE The patient arrived to the procedure lab. The risks and benefits of the procedure as well as a full d escription of our services here and current unavailability of surgical backup were fully explained to the patient and/or their significant other prior to the catheterization. The Timeout was completed, verifying the correct patient and procedure. The patient's procedural site was prepped and draped in the usual fashion. Local anesthetic was given subcutaneously to right radial region with Lidocaine 2% . Using a modified Seldinger technique, arterial access was obtained via the right radial artery, a 6 Fr sheath was inserted. Left Coronary Artery selective angiography was performed in multiple views u sing a 5 Fr. 4.0 [place] catheter. Right Coronary Artery selective angiography was then performed in mu ltiple views using a 5 Fr. 4.0 [place] catheter.The arterial sheath was pulled and a TR Band was applie d for hemostasis 14cc CORONARY ANGIOGRAPHY DOMINANCE: Right Dominant LEFT HEART ASSESSMENT Left Ventricular Ejection Fraction: Not assessed LEFT MAIN: Mild calcification, Angiographically normal LEFT ANTERIOR DECENDING ARTERY: Mild luminal irregularities PROX LAD: Moderate calcification, Diffuse: Irregular: 50 % Stenosis DIAGONAL 1: Proximal - Mild luminal irregularities CIRCUMFLEX ARTERY: PROX CIRC: Mild calcification, Mild luminal irregularities RIGHT CORONARY ARTERY: Mild luminal irregularities COMPLICATIONS No Complications PROCEDURE MEDICATIONS Fentanyl 50 mcg IV Versed 1 mg IV Fentanyl 50 mcg IV Versed 1 mg IV Oxygen: 2 L/min via nasal cannula Heparin diluted in 23cc Heparinized saline. Patient given 10cc IA of this solution. 06/25/2018 11:13: 35 Verapamil 2.5mg, Ntg 100mcgs, 2000 units of Heparin diluted in 23cc Heparinized saline. Patient give n 10cc IA of this solution. 06/25/2018 11:13:35 SUMMARY OF HEMODYNAMIC DATA Time AIR REST ECG 08:59:59 AO 107/57 (79) SA 11:15:56 AO 122/61 (88) 11:17:19 Signed By Jose Patel MD On 06/25/2018 13:46:25 Jose Patel MD
== END 2018-06-25 14:34 | disposition home or self-care (01) ==
LOC: CLSP 08:12
PROVIDERS: Family Provider Family Medicine; PCP Family Medicine; Referring Provider Internal Medicine Cardiovascular Disease; Visit Provider Internal Medicine Cardiovascular Disease
DX: I25.10 Atherosclerotic heart disease of native coronary artery without angina pectoris (principal); R94.39 Abnormal result of other cardiovascular function study; I10 Essential (primary) hypertension; E03.9 Hypothyroidism, unspecified; K80.12 Calculus of gallbladder with acute and chronic cholecystitis without obstruction; Z79.02 Long term (current) use of antithrombotics/antiplatelets; Z79.82 Long term (current) use of aspirin; Z79.899 Other long term (current) drug therapy; Z96.653 Presence of artificial knee joint, bilateral
CPT/HCPCS: 93454; 99152; 99153; J7040; Q9967; C1769; C1894

== ENCOUNTER 2018-07-18 05:19 | Day surgery (SDC) | payer MEDICARE, OTHER, SELFPAY ==
[2018-07-01 09:35] VITALS: BMI 37.4
[2018-07-18] VITALS (10 sets, daily range): BP systolic 122–135; BP diastolic 59–85; PULSE 59–82; RESP 14–16; TEMP 36.3–37.1; O2SAT 90–98; BMI 37.3
[2018-07-18] MEDS: Cefazolin 2 GM in 0.9% Normal Saline 100 ML IV (07:13)
--- NOTE | 2018-07-18 07:15 | GALL_PTH ---
PATIENT: JUAN DAVID LIRA LOC[place] [facility] [place][id number] AGE/SX: 78/F ROOM: RE07/18/[address]: Dr. Logan Jones MD : 1940 BED: DIS: 07/18/2018 SPEC #: [id number] RECD: 07/18/18 10:28 STATUS: SID ROE #: [id number] ALLY: 07/18/18 07:[address]: Logan Jones DEPT: SURGICAL PATHOLOGY RECD BY: Bentley Vigil ENTERED: 07/18/18 11:38 SP TYPE: LEE ARIAS DR: Dr. Janice Nichols MD Tissues: Gallbladder, NOS Procedures: Surgery Specimen Level III HEADER OPERATION: Laparoscopic cholecystectomy PRE-OP DIAGNOSIS: Calculus of gallbladder with chronic cholecystitis without obstruction TISSUE SUBMITTED: Gallbladder MICROSCOPIC DIAGNOSIS Gallbladder: Chronic cholecystitis and cholelithiasis. A pericystic lymph node with reactive changes. SJ:taylor 07/19/18 MICROSCOPIC DESCRIPTION Slides are reviewed. GROSS DESCRIPTION Received is one container labeled with the patient's name and designated gallbladder. The specimen consists of a gallbladder measuring 8.5 cm in length and up to 4 cm in diameter. The external surface is pink-beal, smooth and glistening for the most part. Focally it is granular, hemorrhagic and contains cautery artifact. The gallbladder contains green-yellow mucoid bile and full of multiple irregular black stones measuring in aggregate 7 x 6 x 2 cm and 0.1 to 0.5 cm in greatest dimension. The mucosa is bile-stained and without any mass lesions. The gallbladder wall measures up to 0.2 cm in thickness. Also present close to the cystic duct is an ovoid piece of beal soft tissue, a possible lymph node, measuring 1 cm in greatest dimension. Finishing Range Supervisor sections from the gallbladder and the cystic duct including the entire possible lymph node are submitted in one cassette. / SANG:taylor 07/18/18 TC:3 CPT: 63529
--- NOTE | 2018-07-18 07:22 | DCINST_ITS ---
Discharge Diet: Light diet - advance as tolerated Discharge Activity: May Not Drive - for 2-3 days or while taking narcotic pain medications., - - Do not drive, work heavy equipment or sign legal documents for 24 hours. May shower in (days): 1 - with the bandage in place. Additional Activity Instructions:: Pain medication may cause nausea. You should typically eat light foods as you take your pain medications. Pain medication may also cause constipation. If this is a problem for you, please discuss with your doctor. Call your doctor if your incision/area has: Continuous Slow Oozing, Sudden Increased Bleeding, Increased Pain/ Swelling, Increased Redness, Foul Smelling Discharge Call your doctor if you observe: Fever of 101 or Higher Suture Line Care: Avoid Pulling/Pushing, Avoid Pinching/Bending Additional Dressing/Incision Instructions:: Leave operative bandaids on for 2 days. When you remove dressing, leave Steri-Strips on until your follow-up appointment, or until the Steri-Strips fall off on their own. Allergies/Adverse Reactions: Allergies meperidine [From Demerol] Allergy (Verified 07/12/18 11:17) I JUST GO GOOFY Medications to take at Discharge Amlodipine [Norvasc] 10 mg PO DAILY 03/26/18 Levothyroxine [Synthroid] 50 mcg PO DAILY 03/26/18 Loratadine [Claritin] 10 mg PO DAILY 03/26/18 alprazolam 0.25 mg tablet 0.25 mg PO DAILY PRN tab 05/27/18 cholecalciferol (vitamin D3) 1,000 unit tablet 1,000 unit PO DAILY 05/27/18 fluticasone 50 mcg/actuation nasal spray,suspension 1 spray INTRANASAL DAILY PRN 06/06/18 Aspirin E.C. [Ecotrin] 81 mg PO DAILY@0800 07/12/18 Atorvastatin Calcium [Lipitor] 40 mg PO QHS 07/12/18 Metoprolol Tartrate [Lopressor (beta mirian)] 12.5 mg PO BID 07/12/18 Omeprazole 20 mg PO DAILY 07/12/18 Oxycodone HCl/Acetaminophen [Percocet 5/325] 1 - 2 tab PO Q4H PRN PRN 6 Days #30 tab 07/18/18 The following prescriptions were given: Oxycodone HCl/Acetaminophen [Percocet 5/325] 1 - 2 tab PO Q4H PRN PRN 6 Days #30 tab PRN Reason: Pain Primary Care Physician: Janice Nichols MD [Primary Care Provider] - Test Results: Test results from this visit will be discussed in further detail at your follow- up appointment, if applicable. Please Follow Up With: Logan Jones MD - Please call [phone] to schedule an appointment. When: 7 days after your surgery.
--- NOTE | 2018-07-18 07:22 | OP.PCM_ITS ---
Problem List (1) Calculus of gallbladder with chronic cholecystitis without obstruction Status: Chronic Report of Operation Date of Procedure: 07/18/18 Pre-Operative Diagnosis: Chronic cholecystitis with cholelithiasis Post-Operative Diagnosis: Same Surgery/Procedure Performed:: Laparoscopic cholecystectomy Type of Anesthesia:: General Anesthesiologist: Ivan Bright Specimen's removed: Gallbladder Drains: None Estimated Blood Loss (mL): < 25 cc Description of Procedure: Patient was brought in the operating room. Placed in the supine position. Under excellent general trach intubation the abdomen was sterilely prepped and draped in the usual fashion. Local was injected infraumbilically. Dissection was carried down to the fascia. The fascia was grasped with a [place]. Varies needle was placed inside the abdomen. The abdomen was insufflated to 15 torr. A 10/12 trocar was placed without difficulty. Patient was placed in the head up and rotated to the left position. A subxiphoid #5 trocar was placed, inferior to this another #5 trocar was placed, laterally a #5 trocar was placed. All these under direct visualization without injury to underlying structures. Fundus of the gallbladder was grasped retracted in a cephalad direction infundibulum was grasped retracted laterally. I dissected out the cystic duct. I placed hemoclips proximally and distally and ligated the duct. Identified the cystic artery just posterior to that placed hemoclips proximally and distally and ligated the artery. I deliver the gallbladder from the gallbladder bed with use of electrocautery. Placed a specimen specimen bag and delivered through the umbilical port without difficulty. I used a significant amount of electrocautery on the liver bed to get hemostasis once this was achieved I placed Marco on the liver bed since it was so raw I had good hemostasis. Trochars were removed under direct visualization without injury to underlying structures. Fascia the umbilical port was closed with a [id number] stitch of 0 Vicryl. Skin incisions were closed with subcuticular stitches of 4-0 Monocryl. Steri-Strips were applied sterile dressings were applied and the patient tolerated the procedure well. - Admit VTE Documentation VTE Present on Admission: No VTE Mechan Device Prophylaxis: SCD's VTE Pharm Prophylaxis ordered?: No Reason prophylaxis not ordered:: Treatment Not Indicated
[2018-07-18] MEDS: Bupivacaine Mpf 0.5% 30 ML VIAL (08:25)
== END 2018-07-18 12:10 | disposition home or self-care (01) ==
LOC: SDC 05:20 → AC 05:22
PROVIDERS: Family Provider Family Medicine; PCP Family Medicine; Referring Provider Surgery; Visit Provider Surgery
PROC: (CPT 47562; principal; 2018-07-18 06:55)
DX: K80.10 Calculus of gallbladder with chronic cholecystitis without obstruction (principal); I10 Essential (primary) hypertension; E03.9 Hypothyroidism, unspecified; E78.00 Pure hypercholesterolemia, unspecified; R32 Unspecified urinary incontinence; K21.9 Gastro-esophageal reflux disease without esophagitis; F41.9 Anxiety disorder, unspecified; Z79.02 Long term (current) use of antithrombotics/antiplatelets; Z79.82 Long term (current) use of aspirin; Z79.899 Other long term (current) drug therapy; I25.2 Old myocardial infarction; Z78.0 Asymptomatic menopausal state; Z96.653 Presence of artificial knee joint, bilateral
CPT/HCPCS: 00790; 47562; 88304; J7120; J2405

== ENCOUNTER → 2019-04-07 15:09 | Outpatient (CLI) | payer MEDICARE, OTHER, SELFPAY ==
[2018-08-29 13:44] VITALS: BMI 37.9
[2019-03-21 13:00] VITALS: BMI 39.4
[2019-04-07 12:56] LABS: AST(SGOT) 16 U/L (15-37); Alanine Aminotransfer ALT/SGPT 20 U/L (13-56); Anion Gap 7 (5-15); BUN 21 mg/dL (7-18); BUN/Creat Ratio 23.8 RATIO (10-20); Calcium,Total 9.3 mg/dL (8.5-10.1); Chloride 106 mmol/L (98-107); Cholesterol 119 mg/dL (200); Creatinine, Serum 0.88 mg/dL (0.55-1.02); EST Glomerular Filtration Rate 65 mL/min (>60); Est Glom Filt Rate - Afr Amer 79 mL/min (>60); Glucose 98 mg/dL (74-106); High Density Lipoprotein 51 mg/dL; Sodium Level 141 mmol/L (136-145); T4 Total, Thyroxin 11.1 ug/dL (4.8-13.9); Thyroid Stim Hormone (TSH) 3.81 uIU/mL (0.358-3.74); Triglycerides 101 mg/dL; Very Low Density Lipoprotein 20 mg/dL (5-40)
--- NOTE | 2019-04-07 15:12 | BI_ITS ---
MAMMOGRAPHY - BILATERAL SCREENING REASON FOR EXAM: Female, 79 years old. Routine annual screening examination. PERTINENT HISTORY: Sister with breast cancer. TECHNIQUE: Digital bilateral breast veronica (3D mammographic acquisition) in the CC and MLO projections. 2-D mediolateral oblique (MLO) and craniocaudad (CC) views of both breasts were obtained. CAD: Full Field Digital Mammography with Computer Added Detection was performed. COMPARISON: Comparison is made with prior examination dated April 04, 2018 and March 21, 2017. FINDINGS: Breast Composition: The breasts are almost entirely fatty. There are no dominant masses or suspicious calcifications. Stable 4 mm well-defined nodule in the anterior slightly inferior medial portion of the left breast. No other significant abnormalities are identified. There has been no significant change since the prior study. BI/SCREEN MAMM (CAD) W/VERONICA BILAT IMPRESSION: Stable bilateral screening mammogram. Yearly follow-up mammogram recommended. (A) ASSESSMENT CATEGORY: BIRADS Category 2: Benign. A letter regarding these results will be sent to the patient by the facility within 30 days. Approximately 10% of breast cancers are not detected by mammography. A normal mammogram should not delay biopsy of a clinically suspicious abnormality. [id number] Electronically Signed: Devaughn Bruno, at 8:44 EDT , Service support ,
== END ==
PROVIDERS: Family Provider Family Medicine; PCP Family Medicine; Referring Provider Family Medicine; Visit Provider Family Medicine
DX: I25.10 Atherosclerotic heart disease of native coronary artery without angina pectoris (principal); I10 Essential (primary) hypertension; E03.9 Hypothyroidism, unspecified; Z12.31 Encounter for screening mammogram for malignant neoplasm of breast; Z80.3 Family history of malignant neoplasm of breast
CPT/HCPCS: 36415; 77063; 77067; 80048; 80061; 84436; 84443; 84450; 84460

== ENCOUNTER → 2020-04-13 14:54 | Outpatient (CLI) | payer MEDICARE, OTHER, SELFPAY ==
[2019-03-21 13:00] VITALS: BMI 39.4
--- NOTE | 2020-04-13 14:58 | BI_ITS ---
MAMMOGRAPHY - BILATERAL SCREENING REASON FOR EXAM: Female, 80 years old. Routine annual screening examination. PERTINENT HISTORY: Sister with breast cancer. TECHNIQUE: Digital bilateral breast veronica (3D mammographic acquisition) in the CC and MLO projections. 2-D mediolateral oblique (MLO) and craniocaudad (CC) views of both breasts were obtained. CAD: Full Field Digital Mammography with Computer Added Detection was performed. COMPARISON: Comparison is made with prior study dated 04/07/2019 and 04/04/2018. FINDINGS: Breast Composition: There are scattered areas of fibroglandular density. There are no dominant masses or suspicious calcifications. Stable 4 mm well-defined nodule in the anterior and slightly inferior medial portion of the left breast. No other significant abnormalities are identified. There has been no significant change since the prior study. BI/SCREEN MAMM (CAD) W/VERONICA BILAT IMPRESSION: Stable bilateral screening mammogram. Yearly follow-up mammogram recommended. (A) ASSESSMENT CATEGORY: BIRADS Category 2: Benign. A letter regarding these results will be sent to the patient by the facility within 30 days. Approximately 10% of breast cancers are not detected by mammography. A normal mammogram should not delay biopsy of a clinically suspicious abnormality. [id number] Electronically Signed: Devaughn Bruno, at 8:18 EST , Service support ,
--- NOTE | 2020-04-13 15:02 | BD_ITS ---
STUDY: DUAL ENERGY X-RAY ABSORPTIOMETRY / DXA REASON FOR EXAM: Female, 80 years old. 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 COMPARISON: Comparison is made with prior study dated 04/12/2011. FINDINGS: Lumbar Spine (L1-L4): g/cm2 (1.084) / T-score (-0.7) / Z-score (1.2) Findings are suggestive of normal bone density with a low fracture risk. Left Femur Total: g/cm2 (1.007) / T-score (0.0) / Z-score (2.1) Left Femoral Neck: g/cm2 (0.848) / T-score (-1.4) / Z-score (0.9) Right Femur Total: g/cm2 (1.038) / T-score (0.2) / Z-score (2.4) Right Femoral Neck: g/cm2 (1.070) / T-score (0.2) / Z-score (2.5) The T-Scores on the most recent prior examination were: Lumbar Spine (L1-L4): There has been worsening of bone density since the previous examination. Left Femur Total: which represents a worsening of 6.2%. Right Femur Total: which represents a worsening of 8.9%. BD/Dexa Bone Density Study IMPRESSION: The patient is considered osteopenic as outlined below according to World Zay Organization (WHO) criteria with a low fracture risk. There has been worsening of bone density since the previous examination. Reference Information: The T-score is the number of standard deviations above or below the standard which is normal for young adults at their peak bone mineral density. The World Health Organization (WHO) interprets the T-scores as follows: Above -1 Normal bone density Between -1 and -2.5 Osteopenia Equal to / or below -2.5 Osteoporosis As a practical clinical guideline, osteopenia may be graded as follows: Mild -1 through -1.5 Moderate -1.6 through -2.0 Severe -2.1 through -2.4 The Z-score is the number of standard deviations above or below age-matched controls. A Z-score of less than -1.5 would be considered abnormal. References: 1. NIH Osteoporosis and Related Bone Diseases www osteo.org 2. International Society for Clinical Densitometry www iscd.org 3. National Osteoporosis Foundation www nof.org Electronically Signed: Devaughn Bruno, at 10:04 EST , Service support ,
== END ==
PROVIDERS: PCP Family Medicine; Referring Provider Nurse Practitioner; Visit Provider Nurse Practitioner
DX: Z78.0 Asymptomatic menopausal state (principal); Z12.31 Encounter for screening mammogram for malignant neoplasm of breast
CPT/HCPCS: 77063; 77067; 77080

== ENCOUNTER → 2021-04-14 09:53 | Outpatient (CLI) | payer MEDICARE, OTHER, SELFPAY ==
[2020-07-07 14:14] VITALS: BMI 41.1
--- NOTE | 2021-04-14 09:56 | BI_ITS ---
MAMMOGRAPHY - BILATERAL SCREENING REASON FOR EXAM: Female, 81 years old. Routine annual screening examination. PERTINENT HISTORY: Sister with breast cancer. TECHNIQUE: Digital bilateral breast veronica (3D mammographic acquisition) in the CC and MLO projections. 2-D mediolateral oblique (MLO) and craniocaudad (CC) views of both breasts were obtained. CAD: Full Field Digital Mammography with Computer Added Detection was performed. COMPARISON: Comparison is made with prior study dated 04/13/2020 and 04/07/2000. FINDINGS: Breast Composition: The breasts are almost entirely fatty. There are no dominant masses or suspicious calcifications. Stable 4 mm well-defined nodule in the anterior and slightly inferior aspect of the left breast. No other significant abnormalities are identified. There has been no significant change since the prior study. BI/SCRN MAMM (CAD)W/VERONICA BILAT IMPRESSION: Stable bilateral screening mammogram. Yearly follow-up mammogram recommended. (A) ASSESSMENT CATEGORY: BIRADS Category 2: Benign. A letter regarding these results will be sent to the patient by the facility within 30 days. Approximately 10% of breast cancers are not detected by mammography. A normal mammogram should not delay biopsy of a clinically suspicious abnormality. [id number] Electronically Signed: Devaughn Bruno MD at 10:48 EDT , Service support ,
== END ==
PROVIDERS: PCP Nurse Practitioner; Referring Provider Nurse Practitioner; Visit Provider Nurse Practitioner
DX: Z12.31 Encounter for screening mammogram for malignant neoplasm of breast (principal); Z80.3 Family history of malignant neoplasm of breast
CPT/HCPCS: 77063; 77067

== ENCOUNTER 2021-09-08 12:33 | Outpatient (CLI) | payer MEDICARE, OTHER, SELFPAY ==
--- NOTE | 2021-09-08 13:43 | RAD_ITS ---
STUDY: X-RAY CHEST REASON FOR EXAM: Female, 81 years old. Worsening shortness of breath TECHNIQUE: PA and lateral views of the chest. COMPARISON: None. FINDINGS: Lungs are expanded with chronic interstitial changes in both lung byrne. There are interstitial opacifications in the inferior halves of both lung byrne which may be chronic but atelectasis or early infiltrates cannot be excluded. There is no demonstrated pleural abnormality. Normal size heart. Normal mediastinum and janneth. Normal visualized pulmonary arteries. Normal visualized aortic arch and descending thoracic aorta. There are diffuse degenerative changes of the visualized thoracic spine. There is degenerative osteoarthritis of the bilateral shoulders. There is no demonstrated abnormality of the visualized soft tissue structures of the upper abdomen. RAD/Chest PA and Lateral IMPRESSION: Lungs are expanded with diffuse opacifications in the inferior halves of both lung byrne. This may be chronic but atelectasis, pneumonitis or early infiltrate cannot be excluded. Follow-up recommended Electronically Signed: Carl Ontiveros MD at 17:08 EDT ,
--- NOTE | 2021-09-08 14:36 | PFTCOMP_ITS ---
COMPLETE PULMONARY FUNCTION TEST INTERPRETATION Brief HPI: Patient is an 81 year old female, currently under the care of Rachel Bethanie, who presents to [facility] for complete pulmonary function tests secondary to diagnosis of dyspnea. Respiratory therapist reports subpar effort and reproducible results. Interpretation: Forced expiration spirometry shows no large airways obstructive ventilatory defect with an FEV1 of 80% predicted. There is no significant bronchodilator response by strict ATS criteria. Spirograms are of poor quality with only 1-1/2 to 4 seconds of exhalation and do not plateau, likely underestimating FVC. The respiratory flow volume loop shows a normal pattern. Lung volumes by body plethysmography show a decreased total lung capacity at 3.54 L, 69% predicted. All other lung volumes are reduced symmetrically. Diffusion capacity by carbon monoxide maneuver could not be completed by the patient. The airway resistance is slightly elevated. No previous pulmonary function tests were available for review. Impression: Less than optimal results for reliability. Patient may have a mild restrictive ventilatory defect. Consider chest imaging if not completed previously.
== END 2021-09-08 23:59 | disposition home or self-care (01) ==
LOC: PSN 12:34
PROVIDERS: PCP Nurse Practitioner; Referring Provider Nurse Practitioner; Visit Provider Nurse Practitioner
DX: R06.02 Shortness of breath (principal)
CPT/HCPCS: 71046; 94060; 94726

== ENCOUNTER 2022-01-20 17:57 | Emergency (ER) | payer MEDICARE, OTHER, SELFPAY ==
[2022-01-20 17:59] VITALS: BP 159/81; PULSE 73; RESP 15; TEMP 36.2; O2SAT 96; BMI 38.7
[2022-01-20 18:01] VITALS: O2SAT 95
--- NOTE | 2022-01-20 18:33 | ED.VIS.FALL ---
HPI HPI - Fall History of Present Illness Chief Complaint: Fall Detail of Chief Complaint: Fell over grabbing for something on the floor Informant: patient Occured/Mechanism Occurred: Hours Mechanism/Context: Yes same level fall, Yes slip, No cannot recall fall and No prodromal Narrative: Was bending over to get something and fell over Usually ambulates: Without assistance Pain/Injury Location: Denies pain has bruise left shoulder and dorsum left hand Worsened by: Initial injury Relieved by: Not applicable Associated Symptoms Associated Symptoms: Negative for Parasthesias, Weakness, Loss of function, Inability to ambulate, Loss of consciousness or Amnesia Narrative Narrative: Elderly woman who fell bending over. She is not on an anticoagulant. She denies loss of conscious. She denies being dazed. She denies headache. She denies visual, ocular auditory symptoms. Denies dental trauma. Denies neck pain. She denies paresthesia, anesthesia motors present at time of the fall. She denied chest pain, shortness of breath or difficulty breathing. She denies nausea or vomiting. Tetanus Immunization: >10 years Prior similar symptoms: No Recent Illness/Hospitalization: No PFSH PFS Medical History (Updated 01/20/22 @ 18:[address] Charlie Martinez MD) Atherosclerosis of [place] coronary artery of [place] heart without angina pectoris Essential hypertension Hypothyroidism Mixed hyperlipidemia Home Medications amlodipine 10 mg tablet 10 mg PO DAILY blood pressure 03/26/18 [History Last Taken 07/18/18 04:45 10 MG] alprazolam 0.25 mg tablet (Xanax) 0.25 mg PO DAILY PRN Anxiety 05/27/18 [History Last Taken Unknown] cholecalciferol (vitamin D3) 25 mcg (1,000 unit) tablet 1,000 unit PO DAILY supplement 05/27/18 [History Last Taken Unknown] fluticasone propionate 50 mcg/actuation nasal spray,suspension (Flonase Allergy Relief) 1 spray intranasal DAILY PRN Allergies 06/06/18 [History Last Taken Unknown] atorvastatin 40 mg tablet 40 mg PO QHS cholesterol 07/12/18 [History Last Taken Unknown] metoprolol tartrate 25 mg tablet 12.5 mg PO BID bp/heart 07/12/18 [History Last Taken 07/18/18 04:45 12.5 MG] omeprazole 20 mg tablet,delayed release 20 mg PO DAILY gerd 02/01/19 [History Last Taken 07/18/18 04:45 20 MG] loratadine 10 mg tablet 10 mg PO DAILY PRN allergies 08/29/18 [History Last Taken Unknown] aspirin 81 mg chewable tablet 81 mg PO DAILY #1 TAB 07/07/20 [Rx Last Taken Unknown] calcium 650 mg-vitamin D3 12.5 mcg-vitamin K 40 mcg chewable tablet (Viactiv) 2 tab PO DAILY 07/07/20 [History Last Taken Unknown] cyanocobalamin (vitamin B-12) 1,000 mcg tablet 1,000 mcg PO DAILY 07/07/20 [History Last Taken Unknown] magnesium 30 mg tablet 30 mg PO DAILY 07/07/20 [History Last Taken Unknown] levothyroxine 50 mcg tablet 100 mcg PO DAILY thyroid 12/27/20 [History Last Taken Unknown] albuterol sulfate 90 mcg/actuation breath activated powder inhaler (ProAir RespiClick) 1 inh inhalation DAILY 10/05/21 [History Last Taken Unknown] Allergy/AdvReac Type Severity Reaction Status Date / Time meperidine [From Demerol] Allergy I JUST GO Verified 01/20/22 18:01 GOOFY Family History Father CAD (coronary artery disease) CVA (cerebral vascular accident) Mother No problems noted. Brother CAD (coronary artery disease) History of coronary artery bypass surgery Sister Cancer Breast Surgical History History of bilateral cataract extraction History of carpal tunnel surgery History of laparoscopic cholecystectomy (~07/2018) History of laparotomy History of left knee replacement History of right knee joint replacement Social History (Updated 01/20/22 @ 18:[address] Charlie Martinez MD) household members: none Smoking Status: Never smoker alcohol intake: never substance use type: does not use caffeine: Yes Type: coffee Number of servings: 1 ROS ROS ED Constitutional Constitutional ED: Denies chills, fever(s) or subjective Eyes Eyes: Denies blurry vision, change in vision or diplopia ENT ENT ED: Denies ear pain, rhinorrhea or sore throat Cardiovascular Cardiovascular: Denies chest pain or palpitations Respiratory/Chest Respiratory/Chest: Denies cough, dyspnea or dyspnea on exertion Gastrointestinal Gastrointestinal: Denies abdominal pain or melena Genitourinary Genitourinary ED: Denies hematuria or urinary frequency Musculoskeletal Musculoskeletal: Denies arthralgias, back pain, myalgias or neck pain Integumentary Reports Abrasions; Denies abscess or rash Neurologic Neurologic: Denies headache(s), paresthesias or weakness Hematologic/Lymphatic Hematologic/Lymphatic: Reports easy bruising; Denies easy bleeding EXAM Physical Exam Const Vital Signs: 01/20/22 17:59 01/20/22 18:01 Temperature 97.2 F L Temperature Source Oral Pulse Rate 73 Respiratory Rate 15 Respiratory Effort Normal Non-Labored Respiratory Depth Normal Respiratory Pattern Normal Blood Pressure 159/81 H Blood Pressure Mean 107 Pulse Ox 96 95 Oxygen Delivery Method Room Air Room Air Positive well nourished, well developed and obese General Appearance ED: well developed and NAD Nutritional Appearance: obese HEENT Reports normocephalic, TM's clear and TM's normal bilaterally HEENT Narrative: Patient has abrasion of the bridge of the nose. There is no pain ovation of the nose. There is no septal deviation hematoma. There is no clinical signs of basilar skull fracture. There is no other evidence of facial or head trauma. Negative for hematoma Tympanic Membrane ED: Yes TM's clear Eyes PERRL and EOMs intact bilaterally Eyes Narrative: There is no subconjunctival hemorrhage noted. There is no pain the patient of the left or right orbital rim. There is no hypoesthesia infraorbital nerve. There is no evidence of entrapment. General Eye ED: Negative for pale conjunctiva or scleral icterus Neck full ROM, no lymphadenopathy and supple Neck Narrative: There is no pain to palpation. Resp normal respiratory effort, no retractions and clear to auscultation bilaterally Cardio regular rate, regular rhythm, S1 normal heart sound, S2 normal heart sound and no murmurs GI non-tender, non-distended and no masses Back/Spine no CVA tenderness Neuro oriented x3, CN's II-XII intact bilaterally, moves all extremities, no focal motor deficits and no sensory deficits noted Elzbieta Coma Scale: document GCS findings Spontaneous Obeys Commands Oriented 15 Sensorium / Orientation: alert Psych mental status grossly normal and thought process normal Skin Trauma: abrasion MDM MDM MDM Narrative Medical decision making narrative: With the [place] CT head rule and the Nexus criteria imaging of the head and neck are not indicated. We will have nurse cleaned wounds. She does have a skin tear on the dorsum of her hand that is 1 cm. There is a large bruise noted left shoulder. She has full active range of motion. No pain the patient of the clavicle or AC joint. There is no pain the patient over the lateral medial epicondyle, olecranon process or radial head. There is no pain the patient over the distal radius, ulna or carpal bones. There is no pain the patient over the metacarpal bones. Median, radial and ulnar function intact. Axillary nerve is functionally intact as well. Treatment is symptomatic. Discharge Plan Triage Chief Complaint: Fall ED Provider: Charlie Martinez Dx/Rx/DC Orders Clinical Impression: Injury due to fall, Abrasion, face w/o infection, Contusion of left shoulder, initial encounter, Contusion of left hand, ISTAP type 2 skin tear of left hand Instructions: ED Abrasion, ED Contusion, Upper Extremity, ED Laceration: Skin Adhesive Prescriptions: No Action alprazolam [Xanax] 0.25 mg tablet 0.25 mg PO DAILY PRN (Reason: Anxiety) cholecalciferol (vitamin D3) 1,000 unit tablet 1,000 unit PO DAILY fluticasone propionate [Flonase Allergy Relief] 50 mcg/actuation spray,suspension 1 spray INTRANASAL DAILY PRN (Reason: Allergies) cyanocobalamin (vitamin B-12) 1,000 mcg tablet 1,000 mcg PO DAILY calcium-vitamin D3-vitamin K [Viactiv] 650 mg-12.5 mcg-40 mcg tablet,chewable 2 tab PO DAILY magnesium 30 mg tablet 30 mg PO DAILY aspirin 81 mg tablet,chewable 81 mg PO DAILY Qty: 1 0RF ProAir RespiClick 90 mcg/actuation aerosol powdr breath activated 1 inh inhalation DAILY amlodipine 10 MG tablet 10 mg PO DAILY loratadine 10 mg tablet 10 mg PO DAILY PRN (Reason: allergies) levothyroxine 50 mcg tablet 100 mcg PO DAILY Rx Instructions: no sundays atorvastatin 40 MG tablet 40 mg PO QHS metoprolol tartrate 25 MG tablet 12.5 mg PO BID omeprazole 20 MG tablet,delayed release (DR/EC) 20 mg PO DAILY Primary Care Provider: Ginger Puentes Referrals: Rachel Kovacs LAUNCH CHECK OUT, LAUNCH CHECK OUT-[facility] [Non-Staff] - As Needed Activity Restrictions/Additional Instructions: You may feel worse over the next 24 to 48 hours. You may hurt in more places and you presently do. Apply bacitracin ointment to abrasions Disposition Disposition: Home, Self Care
[2022-01-20] MEDS: Diphth,Pertuss(Acell),Tet Vac 0.5 ML Vial IM (18:58)
== END 2022-01-20 19:05 | disposition home or self-care (01) ==
PROVIDERS: Emergency Provider Emergency Medicine; PCP Nurse Practitioner Family; Visit Provider Emergency Medicine
DX: S61.411A Laceration without foreign body of right hand, initial encounter (principal); S40.012A Contusion of left shoulder, initial encounter; S00.31XA Abrasion of nose, initial encounter; Z23 Encounter for immunization; W01.0XXA Fall on same level from slipping, tripping and stumbling without subsequent striking against object, initial encounter; I25.10 Atherosclerotic heart disease of native coronary artery without angina pectoris; I10 Essential (primary) hypertension; E78.2 Mixed hyperlipidemia; E03.9 Hypothyroidism, unspecified; Z79.82 Long term (current) use of aspirin; Z79.890 Hormone replacement therapy; Z79.899 Other long term (current) drug therapy; Z96.653 Presence of artificial knee joint, bilateral
CPT/HCPCS: 90471; 90715; 99284

== ENCOUNTER → 2022-04-17 | Outpatient (CLI) | payer MEDICARE, OTHER, SELFPAY ==
--- NOTE | 2022-04-17 14:07 | CT_ITS ---
INDICATION: chronic SOB EXAMINATION: CT CHEST WITH CONTRAST - CT Chest W/ Contrast Injection TECHNIQUE: Helically acquired images were obtained of the chest following IV contrast. A radiation dose optimization technique was used for this scan. IV Contrast dosage and agent: 100 cc of [id number]. COMPARISON: None. FINDINGS: LUNGS, PLEURA AND LARGE AIRWAYS: Diffuse multifocal groundglass opacities versus mosaic pattern suggestive of multifocal pneumonitis versus small airway disease. Interstitial prominence in the subpleural region more severe in the lung apices which may indicate early pulmonary fibrosis/interstitial disease. No pleural effusion or thickening. No pneumothorax. THYROID: Tiny thyroid lesion posteriorly within the right lobe measuring 3 mm. HEART AND PERICARDIUM: Cardiomegaly with coronary artery calcifications. No pericardial effusion. VESSELS: Atherosclerotic disease of aorta. Otherwise thoracic aorta is not dilated. No aortic dissection. No obvious central pulmonary embolism although this study was not performed with the pulmonary embolism protocol. MEDIASTINUM AND ROSANNA: Small lymph nodes in the aortopulmonary window largest measuring approximately 6 x 7 mm with no mediastinal or hilar adenopathy. Esophagus is unremarkable. No hiatal hernia. UPPER ABDOMEN: No acute pathology. BONES: No suspicious lytic or blastic abnormality. CT/Chest WITH Contrast IMPRESSION: No pulmonary embolus or aortic dissection. Small airway disease versus multifocal pneumonitis. Cannot exclude underlying chronic interstitial changes versus early pulmonary fibrosis, clinical correlation recommended. Tiny right-sided thyroidal patient measuring 3 mm which may be further assessed with ultrasound in nonacute setting. Electronically Signed: Patricia Hernandez MD at 3:18 EST ,
[2022-04-17 14:40] LABS: CREATININE FINGERSTICK < 0.9 mg/dL (0.55-1.02); EGFR FINGERSTICK > 60.0000 mL/min (>60)
== END | disposition home or self-care (01) ==
LOC: CT 14:06
PROVIDERS: PCP Nurse Practitioner Family; Referring Provider Nurse Practitioner Family; Visit Provider Nurse Practitioner Family
DX: R06.02 Shortness of breath (principal)
CPT/HCPCS: 71260; Q9967

== ENCOUNTER → 2022-04-20 | Outpatient (CLI) | payer MEDICARE, OTHER, SELFPAY ==
--- NOTE | 2022-04-20 15:01 | BI_ITS ---
MAMMOGRAPHY - BILATERAL SCREENING REASON FOR EXAM: Female, 82 years old. Routine annual screening examination. PERTINENT HISTORY: Sister with breast cancer. TECHNIQUE: Digital bilateral breast veronica (3D mammographic acquisition) in the CC and MLO projections. 2-D mediolateral oblique (MLO) and craniocaudad (CC) views of both breasts were obtained. CAD: Full Field Digital Mammography with Computer Added Detection was performed. COMPARISON: Comparison is made with prior study dated 04/14/2021 and 04/13/2020. FINDINGS: Breast Composition: The breasts are almost entirely fatty. There are no dominant masses or suspicious calcifications. Stable 4 mm well-defined nodule in the anterior and slightly inferior aspect of the left breast. No other significant abnormalities are identified. There has been no significant change since the prior study. BI/SCRN MAMM (CAD)W/VERONICA BILAT IMPRESSION: Stable bilateral screening mammogram. Yearly follow-up mammogram recommended. (A) ASSESSMENT CATEGORY: BIRADS Category 2: Benign. A letter regarding these results will be sent to the patient by the facility within 30 days. Approximately 10% of breast cancers are not detected by mammography. A normal mammogram should not delay biopsy of a clinically suspicious abnormality. [id number] Electronically Signed: Devaughn Bruno MD at 8:16 EST ,
--- NOTE | 2022-04-20 15:17 | BD_ITS ---
STUDY: DUAL ENERGY X-RAY ABSORPTIOMETRY / DXA REASON FOR EXAM: Female, 82 years old. M85.89 TECHNIQUE: Bone Mineral Density (BMD) measurements of lumbar spine and bilateral hips were obtained. COMPARISON: Comparison is made with prior study of 04/13/2020. FINDINGS: Lumbar Spine (L1-L4): g/cm2 (0.944) / T-score (-0.3) / Z-score (2.3) Findings are suggestive of normal bone density with a low fracture risk. Left Femur Total: g/cm2 (0.903) / T-score (-0.3) / Z-score (2.0) Left Femoral Neck: g/cm2 (0.728) / T-score (-1.1) / Z-score (1.4) Right Femur Total: g/cm2 (0.962) / T-score (0.2) / Z-score (2.5) Right Femoral Neck: g/cm2 (0.735) / T-score (-1.0) / Z-score (1.5) The T-Scores on the most recent prior examination were: Lumbar Spine (L1-L4): There has been worsening of bone density since the previous examination. Left Femur Total: which represents a worsening of 3.9%. Right Femur Total: which represents a worsening of 0.9%. BD/Dexa Bone Density Study IMPRESSION: The patient is considered osteopenic as outlined below according to World Zay Organization (WHO) criteria with a low fracture risk. There has been worsening of bone density since the previous examination. Reference Information: The T-score is the number of standard deviations above or below the standard which is normal for young adults at their peak bone mineral density. The World Health Organization (WHO) interprets the T-scores as follows: Above -1 Normal bone density Between -1 and -2.5 Osteopenia Equal to / or below -2.5 Osteoporosis As a practical clinical guideline, osteopenia may be graded as follows: Mild -1 through -1.5 Moderate -1.6 through -2.0 Severe -2.1 through -2.4 The Z-score is the number of standard deviations above or below age-matched controls. A Z-score of less than -1.5 would be considered abnormal. References: 1. NIH Osteoporosis and Related Bone Diseases www osteo.org 2. International Society for Clinical Densitometry www iscd.org 3. National Osteoporosis Foundation www nof.org Electronically Signed: Devaughn Bruno MD at 15:19 EST ,
== END | disposition home or self-care (01) ==
LOC: OPBD 15:00
PROVIDERS: PCP Nurse Practitioner Family; Visit Provider Nurse Practitioner Family
DX: Z12.31 Encounter for screening mammogram for malignant neoplasm of breast (principal); Z80.3 Family history of malignant neoplasm of breast; M85.89 Other specified disorders of bone density and structure, multiple sites
CPT/HCPCS: 77063; 77067; 77080

== ENCOUNTER → 2022-05-29 | Outpatient (CLI) | payer MEDICARE, OTHER, SELFPAY ==
--- NOTE | 2022-05-29 10:33 | RAD_ITS ---
INDICATION: f/u abnormal CT scan EXAMINATION/TECHNIQUE: X-RAY - XR Chest 2 Views COMPARISON: 09/08/2021 FINDINGS: LIFE-SUPPORT AND LINES: 1. None HEART AND VESSELS: Cardiac silhouette is unchanged. There is mild vascular congestion. LUNGS AND PLEURAL SPACES: Diffuse interstitial prominence perihilar and infrahilar region on LEFT, similar though less extensive changes in the RIGHT, and focal area early infiltrate in the lateral periphery the RIGHT midlung. No pulmonary mass is noted. MEDIASTINUM AND HILAR REGIONS: No masses adenopathy noted. No areas of calcification. Visualized upper airway is normal in position. BONY ELEMENTS: No acute bony changes noted. RAD/Chest PA and Lateral IMPRESSION: 1. Diffuse interstitial prominence perihilar and infrahilar region on the LEFT, and in the RIGHT midlung. No consolidation, no effusion. Electronically Signed: Renato Mckee MD at 2:13 EST ,
== END | disposition home or self-care (01) ==
LOC: RAD 10:31
PROVIDERS: PCP Nurse Practitioner Family; Referring Provider Internal Medicine Critical Care Medicine; Visit Provider Internal Medicine Critical Care Medicine
DX: R06.02 Shortness of breath (principal)
CPT/HCPCS: 71046

== ENCOUNTER → 2022-05-31 | Outpatient (CLI) | payer MEDICARE, OTHER, SELFPAY ==
[2022-05-31 10:29] LABS: BNP,B-Type NATRIURETIC PEPTIDE 79.8 pg/mL (0-100)
[2022-05-31 10:36] LABS: Rheumatoid Factor < 10.0 IU/mL (<15)
[2022-06-01 14:08] LABS: Cytoplasmic Ab (C-ANCA) <1:20 titer (Neg:<1:20)
[2022-06-01 17:10] LABS: CCP IgG Antibodies 0 units (0-19); Perinuclear Ab (P-ANCA) <1:20 titer (Neg:<1:20)
[2022-06-01 17:11] LABS: ANTINUCLEAR ANTIBODIES DIRECT Negative (Negative)
== END | disposition home or self-care (01) ==
LOC: PAVLAB 09:46
PROVIDERS: PCP Nurse Practitioner Family; Referring Provider Internal Medicine Critical Care Medicine; Visit Provider Internal Medicine Critical Care Medicine
DX: R06.02 Shortness of breath (principal)
CPT/HCPCS: 36415; 83880; 86038; 86200; 86225; 86235; 86256; 86431

== ENCOUNTER 2022-07-16 09:34 | Emergency (ER) | payer MEDICARE, OTHER, SELFPAY ==
[2022-07-16 09:35] VITALS: BP 134/72; PULSE 67; RESP 18; TEMP 36.6; O2SAT 97; BMI 38.9
--- NOTE | 2022-07-16 09:52 | RAD_ITS ---
STUDY: X-RAY - RIGHT KNEE REASON FOR EXAM: Female, 82 years old. Pain TECHNIQUE: 4 view(s) of the knee. COMPARISON: None. FINDINGS: There is demineralization of the visualized distal femur. There is demineralization of the tibia and fibula. Normal proximal tibiofibular articulation. There is a right knee hemiarthroplasty with hardware in the medial compartment with narrowing. There is a severely narrowed lateral compartment. There is disc space narrowing subchondral sclerosis. There is osteophytosis. There is severe degenerative arthrosis of the patellofemoral articulation. The soft tissue structures are unremarkable. 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 Medial knee compartment hemiarthroplasty. Electronically Signed: Rosalind Kruse MD at 10:18 EST Reading Location ID and State: [facility] / [place] Tel , Service support ,
--- NOTE | 2022-07-16 09:52 | VDLE_ITS ---
Reason For Study: RLE Pain RIGHT LEFT GSV is normal. CFV is compressible, spontaneous, phasic, CFV is compressible, spontaneous, phasic, competent, and demonstrates normal competent and demonstrates normal augmentation. augmentation. FV is compressible, spontaneous, phasic, competent and demonstrates normal augmentation. POP V is compressible, spontaneous, phasic, competent and demonstrates normal augmentation. T/P Trunk is compressible. PTV is compressible. RT PerV is compressible. Hypoechoic, non vascular structure noted Rt Pop Fossa measuring 0.50cm x 1.70cm. Procedure This is a venous duplex using B-mode, color flow and spectral Doppler. Exam performed portable in ED. A preliminary report was called and/or faxed to Dr. Steven. VL/Venous Duplex US, Unilateral Interpretation Summary Deep veins of the right lower extremity are patent and compressible segmentally . There is no evidence of right lower extremity deep vein thrombosis. Valvular competence she ears intact within the proximal deep venous system on the right . The right great saphenous vein a ppears patent and compressible segmentally. The left common femoral vein is patent, compressible, and competent. A non-vascular, hypoechoic structure is noted in the right popliteal space, measu ring 0.50 cm x 1.70 cm. This probably represents a popliteal cyst. Clinical correlation is advised. Ordering Physician: Piper Steven Referring Physician: Ginger Puentes Performed By: Stacy Kothari, JOSEF, RVT
--- NOTE | 2022-07-16 09:56 | EDS_ITS ---
HPI History of Present Illness Chief Complaint: Lower Extremity Injury Detail of Chief Complaint: Right knee pain Informant: patient Onset/Context/Timing Onset: Today Current Severity: Moderate Maximum Severity: Moderate Narrative Narrative: Patient present secondary to right knee pain. She states yesterday her knee felt well. She was vacuuming. Last evening she started getting right knee pain and it felt worse this morning. She is concerned that she may have a blood clot. She denies any fall or injury to her knee. She has not yet taken anything for pain. [facility] Medical History Atherosclerosis of [place] coronary artery of [place] heart without angina pectoris Essential hypertension Fall Hypothyroidism Mixed hyperlipidemia Home Medications amlodipine 10 mg tablet 10 mg PO DAILY blood pressure 03/26/18 [History Last Taken 07/18/18 04:45 10 MG] cholecalciferol (vitamin D3) 25 mcg (1,000 unit) tablet 1,000 unit PO DAILY supplement 05/27/18 [History Last Taken Unknown] fluticasone propionate 50 mcg/actuation nasal spray,suspension (Flonase Allergy Relief) 1 spray intranasal DAILY PRN Allergies 06/06/18 [History Last Taken Unknown] atorvastatin 40 mg tablet 40 mg PO QHS cholesterol 07/12/18 [History Last Taken Unknown] metoprolol tartrate 25 mg tablet 12.5 mg PO BID bp/heart 07/12/18 [History Last Taken 07/18/18 04:45 12.5 MG] omeprazole 20 mg tablet,delayed release 20 mg PO DAILY gerd 07/12/18 [History Last Taken 07/18/18 04:45 20 MG] loratadine 10 mg tablet 10 mg PO DAILY PRN allergies 08/29/18 [History Last Taken Unknown] aspirin 81 mg chewable tablet 81 mg PO DAILY #1 TAB 07/07/20 [Rx Last Taken Unknown] cyanocobalamin (vitamin B-12) 1,000 mcg tablet 1,000 mcg PO DAILY 07/07/20 [History Last Taken Unknown] albuterol sulfate 90 mcg/actuation breath activated powder inhaler (ProAir RespiClick) 1 inh inhalation DAILY 10/05/21 [History Last Taken Unknown] calcium 650 mg-vitamin D3 12.5 mcg-vitamin K 40 mcg chewable tablet (Viactiv) 1 tab PO DAILY 04/06/22 [History Last Taken Unknown] levothyroxine 100 mcg tablet 100 mcg PO 6XW 04/06/22 [History Last Taken Unknown] Allergy/AdvReac Type Severity Reaction Status Date / Time meperidine [From Demerol] Allergy I JUST GO Verified 07/16/22 09:34 GOOFY Family History Father CAD (coronary artery disease) CVA (cerebral vascular accident) Mother No problems noted. Brother CAD (coronary artery disease) History of coronary artery bypass surgery Sister Cancer Breast Surgical History History of bilateral cataract extraction History of carpal tunnel surgery History of laparoscopic cholecystectomy (~07/2018) History of laparotomy History of left knee replacement History of right knee joint replacement Social History household members: none Smoking Status: Never smoker alcohol intake: never substance use type: does not use caffeine: Yes Type: coffee Number of servings: 1 ROS ROS ED Constitutional Constitutional ED: Denies chills or fever(s) Eyes Eyes: Denies change in vision or discharge from eye(s) ENT ENT ED: Denies discharge from eye(s), rhinorrhea or sore throat Cardiovascular Cardiovascular: Denies chest pain or palpitations Respiratory/Chest Respiratory/Chest: Denies cough or dyspnea Gastrointestinal Gastrointestinal: Denies abdominal pain, diarrhea, nausea or vomiting Genitourinary Genitourinary ED: Denies dysuria Musculoskeletal Musculoskeletal: Reports extremity pain; Denies back pain Integumentary Denies Abrasions or rash Neurologic Neurologic: Denies headache(s), paresthesias or weakness Psychiatric Psychiatric: Denies anxiety or depression Allergic/Immunologic Allergic/Immunologic ED: Denies lip swelling or urticaria EXAM Physical Exam Const Vital Signs: 07/16/22 09:35 Temperature 97.8 F Temperature Source Temporal Pulse Rate 67 Respiratory Rate 18 Blood Pressure 134/72 H Blood Pressure Mean 92 Pulse Ox 97 Oxygen Delivery Method Room Air Positive well nourished and well developed General Appearance ED: well developed HEENT Reports normocephalic and head/scalp atraumatic Eyes PERRL and EOMs intact bilaterally Neck supple Chest Wall inspection of chest normal and palpation of chest normal Resp normal respiratory effort and clear to auscultation bilaterally Cardio regular rate and regular rhythm GI normal to inspection, nondistended, normoactive bowel sounds Palpation: soft Extremity normal to inspection Extremity Narrative: Mild tenderness to palpation to the posterior right knee. No palpable masses or cords. Good distal pulses. Neuro oriented x3 and no sensory deficits noted Sensorium / Orientation: alert Psych mental status grossly normal Skin no rashes or lesions noted MDM MDM MDM Narrative Medical decision making narrative: Patient was given Tylenol for pain. Right knee x-rays were obtained along with venous ultrasound of the right leg. 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 Medial knee compartment hemiarthroplasty. Electronically Signed: Rosalind Kruse MD at 10:18 EST Reading Location ID and State: [facility] / [place] Tel , Service support , Treatment and Re-Evaluation Narrative: Right knee x-ray per my interpretation reveals arthritic changes. She had medial knee replacement. Hardware is intact. Radiology interpretation is rev iewed and agrees. Venous ultrasound of the right lower extremity reveals no evidence of DVT. She is a very small Georges's cyst noted. Test results are discussed with patient and daughter at bedside. Patient is able to get up and ambulate with a walker here without difficulty. She has a walker at home that she can use. I believe her symptoms are likely secondary to overuse with her housework yesterday. Discharge Plan Triage Chief Complaint: Lower Extremity Injury ED Provider: Piper Steven Dx/Rx/DC Orders Clinical Impression: Right knee sprain Instructions: ED Knee Sprain Prescriptions: No Action cholecalciferol (vitamin D3) 1,000 unit tablet 1,000 unit PO DAILY fluticasone propionate [Flonase Allergy Relief] 50 mcg/actuation spray,suspension 1 spray INTRANASAL DAILY PRN (Reason: Allergies) cyanocobalamin (vitamin B-12) 1,000 mcg tablet 1,000 mcg PO DAILY aspirin 81 mg tablet,chewable 81 mg PO DAILY Qty: 1 0RF calcium-vitamin D3-vitamin K [Viactiv] 650 mg-12.5 mcg-40 mcg tablet,chewable 1 tab PO DAILY ProAir RespiClick 90 mcg/actuation aerosol powdr breath activated 1 inh inhalation DAILY levothyroxine 100 mcg tablet 100 mcg PO 6XW amlodipine 10 MG tablet 10 mg PO DAILY loratadine 10 mg tablet 10 mg PO DAILY PRN (Reason: allergies) atorvastatin 40 MG tablet 40 mg PO QHS metoprolol tartrate 25 MG tablet 12.5 mg PO BID omeprazole 20 MG tablet,delayed release (DR/EC) 20 mg PO DAILY Primary Care Provider: Ginger Puentes Referrals: Ginger Puentes, [facility]ILL[facility] REPA[facility]-C [Primary Care Provider] - 1 Week if not improving Disposition Disposition: Home, Self Care
[2022-07-16] MEDS: Acetaminophen 500 MG Tablet 1000 MG PO (10:15)
== END 2022-07-16 12:04 | disposition home or self-care (01) ==
PROVIDERS: Emergency Provider Emergency Medicine; PCP Nurse Practitioner Family; Visit Provider Emergency Medicine
DX: S83.91XA Sprain of unspecified site of right knee, initial encounter (principal); I25.10 Atherosclerotic heart disease of native coronary artery without angina pectoris; E78.2 Mixed hyperlipidemia; I10 Essential (primary) hypertension; X58.XXXA Exposure to other specified factors, initial encounter; Z96.651 Presence of right artificial knee joint
CPT/HCPCS: 73564; 93971; 99282

== ENCOUNTER → 2023-04-30 | Outpatient (CLI) | payer MEDICARE, OTHER, SELFPAY ==
--- NOTE | 2023-04-30 12:28 | BI_ITS ---
MAMMOGRAPHY - BILATERAL SCREENING REASON FOR EXAM: Female, 83 years old. Routine annual screening examination. PERTINENT HISTORY: Sister with breast cancer. TECHNIQUE: Digital bilateral breast veronica (3D mammographic acquisition) in the CC and MLO projections. 2-D mediolateral oblique (MLO) and craniocaudad (CC) views of both breasts were obtained. CAD: Full Field Digital Mammography with Computer Added Detection was performed. COMPARISON: Comparison is made with prior study dated April 20, 2022 and April 14, 2021. FINDINGS: Breast Composition: The breasts are almost entirely fatty. There are no dominant masses or suspicious calcifications. Stable 4 mm well-defined nodule in the anterior and slightly inferior and medial aspect of the left breast No other significant abnormalities are identified. There has been no significant change since the prior study. BI/SCRN MAMM (CAD)W/VERONICA BILAT IMPRESSION: Stable bilateral screening mammogram. Yearly follow-up mammogram recommended. (A) ASSESSMENT CATEGORY: BIRADS Category 2: Benign. A letter regarding these results will be sent to the patient by the facility within 30 days. Approximately 10% of breast cancers are not detected by mammography. A normal mammogram should not delay biopsy of a clinically suspicious abnormality. [id number] Electronically Signed: Devaughn Bruno MD at 9:34 EST ,
== END | disposition home or self-care (01) ==
LOC: OPBI 12:25
PROVIDERS: PCP Nurse Practitioner Family; Referring Provider Nurse Practitioner Family; Visit Provider Nurse Practitioner Family
DX: Z12.31 Encounter for screening mammogram for malignant neoplasm of breast (principal); Z80.3 Family history of malignant neoplasm of breast
CPT/HCPCS: 77063; 77067

== ENCOUNTER → 2024-05-02 | Outpatient (CLI) | payer MEDICARE, OTHER, SELFPAY | END | disposition home or self-care (01) | LOC: OPBI 10:27 | PROVIDERS: PCP Nurse Practitioner Family; Referring Provider Nurse Practitioner Family; Visit Provider Nurse Practitioner Family | DX: Z12.31 Encounter for screening mammogram for malignant neoplasm of breast (principal) | CPT/HCPCS: 77063; 77067 ==

== ENCOUNTER 2024-08-02 16:24 | Inpatient (IN) | payer MEDICARE, SELFPAY ==
[2024-08-02 16:09] VITALS: PULSE 89; O2SAT 92
--- NOTE | 2024-08-02 16:23 | PCM.HP.STD ---
HPI - General General Date of Admission: 08/02/24 Date of Service: 08/02/24 Chief Complaint: SOB [facility] Narrative JUAN DAVID LIRA, is a 84-year-old female with history of hypothyroidism, GERD, mild nonobstructive coronary artery disease presented to [facility] with complaints of shortness of breath and cough for 1 week. Chest x-ray showed a right-sided pneumonia and patient was requiring 2 L O2. COVID/flu/RSV negative. Patient's pH was 7.14 with pCO2 of 44. Vitals in [facility] showed a sat of 95% on 2 L, BP 150/80, respiratory rate of 18. BMP with sodium of 144, potassium 4.3, chloride 108, creatinine 0.7. CBC with white count of 17.2, hemoglobin 14, platelets 127. Given patient follows with Dr. Nunn and has seen Dr. Novoa before and family is close to [place], family requested patient be transferred to [facility]. Patient was accepted in transfer and admitted to our floor. Patient seen at bedside. She reports that she had cough and shortness of breath for the past couple of weeks and today her son came and saw her and was upset with her that she did not go to the doctor which is why she went to the hospital. She reports she feels just generally worn out right now. Denies any fevers at home, reports about a week ago she was walking from her house to her mailbox and back (which she reports is a very long way [place] and she had a couple seconds of of chest pain that then resolved and did not recur. ROS otherwise negative [facility] Medical History Fall Mixed hyperlipidemia Atherosclerosis of [place] coronary artery of [place] heart without angina pectoris Essential hypertension Hypothyroidism Home Medications ?Medication ?Instructions ?Recorded ?Last Taken ?Type cholecalciferol (vitamin D3) 25 1,000 unit PO DAILY supplement 05/27/18 08/01/24 History mcg (1,000 unit) tablet atorvastatin 40 mg tablet 40 mg PO QHS cholesterol 07/12/18 08/01/24 History metoprolol tartrate 25 mg tablet 12.5 mg PO BID bp/heart 07/12/18 08/01/24 History omeprazole 20 mg tablet,delayed 20 mg PO DAILY gerd 07/12/18 08/01/24 History release loratadine 10 mg tablet 10 mg PO DAILY allergies 08/29/18 08/01/24 History aspirin 81 mg chewable tablet 81 mg PO DAILY heart health #1 TAB 07/07/20 08/01/24 Rx calcium 650 mg-vitamin D3 12.5 1 tab PO DAILY supplement 04/06/22 08/01/24 History mcg-vitamin K 40 mcg chewable tablet (Viactiv) levothyroxine 100 mcg tablet 12.5 mcg PO BID thyroid 04/06/22 08/01/24 History amlodipine 5 mg tablet 5 mg PO QDAY high blood pressure 05/20/24 08/01/24 Rx #90 tabs furosemide 20 mg tablet (Lasix) 20 mg PO Q OTHER DAY water pill 05/20/24 Unknown History Allergy/AdvReac Type Severity Reaction Status Date / Time meperidine (From Demerol) Allergy I JUST GO Verified 05/20/24 10:05 GOOFY Family History Father CAD (coronary artery disease) CVA (cerebral vascular accident) Mother No problems noted. Brother CAD (coronary artery disease) History of coronary artery bypass surgery Sister Cancer Breast Surgical History History of laparoscopic cholecystectomy (~07/2018) History of left knee replacement History of right knee joint replacement History of bilateral cataract extraction History of laparotomy History of carpal tunnel surgery Social History household members: none Smoking Status: Never smoker alcohol intake: never substance use type: does not use caffeine: Yes Type: coffee Number of servings: 1 ROS ROS Narrative General: Denies fever/chills HENT: Occasionally will get a headache, takes Tylenol with resolution, denies stuffy nose, denies sore throat EYES: Denies changes in vision Resp: Cough and shortness of breath for couple of weeks Cardiac: Denies current chest pain GI: Denies abdominal pain, denies changes in bowel, denies nausea/vomiting : Denies changes in urination Extremity: Denies swelling MSK: Feels generally wiped out right now Neuro: Denies any numbness/tingling Heme: Denies any bleeding or bruising Skin: Denies rashes Psychiatric: No complaints voiced Physical Exam Narrative General: Alert, oriented, no apparent distress HEENT: Atraumatic, normocephalic Eyes: Anicteric, normal conjunctiva, extraocular movements grossly intact Neck: Supple Respiratory: Little bit diminished to the bases normal respiratory effort Cardiovascular: Regular rate GI: Soft, nontender, nondistended Extremities: No edema Musculoskeletal: Moving all extremities Neuro: No overt focal neurological deficits Skin: No rashes appreciated Psych: Cooperative Assessment & Plan Assessment/Plan (1) Pneumonia: PLAN: Plan #Community-acquired pneumonia -Imaging: Chest x-ray with right sided pneumonia at outlying facility -DuoNebs and as needed albuterol -Sputum culture, COVID negative, respiratory panel ordered -Urine antigens -Mucinex, I/S -Rocephin and azithromycin # History of mild coronary artery disease -On heart cath in 2019 -Continue aspirin and statin and beta-mirian -Follows with Dr. Nunn, last seen 05/20/2024 # Mixed hyperlipidemia -Patient's lipids were at goal on 05/05/2024 on atorvastatin 40, will continue #Hypertension -Patient had her amlodipine decreased in May due to some lightheaded spells -Continue amlodipine and metoprolol with holding parameters #GERD -Continue PPI #Hypothyroidism -Continue Synthroid #Seasonal allergies -Continue home loratadine #DVT ppx: Lovenox subq Daniela Tarango MD Charges/Coding Visit Charges Inpatient E&M: 87097 Init Hosp L2
[2024-08-02 16:50] VITALS: BP 135/60; PULSE 99; RESP 18; TEMP 36.6; O2SAT 2
[2024-08-02 17:00] VITALS: BMI 35.8
[2024-08-02 20:16] VITALS: BP 141/70; PULSE 75; RESP 17; TEMP 36.7; O2SAT 95
[2024-08-02] MEDS: Acetaminophen 325 MG Tablet 650 MG PO (20:20)
[2024-08-02] MEDS: 0.9% Saline Lock 10 ML Syringe IV (20:21)
[2024-08-02 22:18] VITALS: BP 141/70; PULSE 75
[2024-08-02] MEDS: guaiFENesin 1,200 MG Tablet 1200 MG PO (22:18)
[2024-08-02] MEDS: Metoprolol Tartrate 25 MG Tablet 12.5 MG PO (22:18)
[2024-08-02] MEDS: Atorvastatin Calcium 40 MG Tablet PO (22:18)
[2024-08-02] MEDS: Nystatin Powder 15gm Bottle 1 APPLIC TOPICAL (23:20)
[2024-08-02] MEDS: Menthol/Lanolin/Calamine/Znox 113 GM Tube 1 APPLIC TOPICAL (23:20)
[2024-08-03] VITALS (8 sets, daily range): BP systolic 120–134; BP diastolic 53–66; PULSE 73–94; RESP 15–20; TEMP 36.3–36.7; O2SAT 94–96
[2024-08-03] MEDS: Ipratropium/Albuterol Sulfate 3 ML AMPUL.NEB INHALATION ×3 (00:17→12:39)
[2024-08-03 06:52] LABS: Absolute Neutrophil Count 9.6 X10^3/uL (2.0-7.7); Basophil# 0.01 X10^3/uL; Basophil% 0.1 % (0-1); Hematocrit 40.8 % (37-47); Lymphocyte % 6.6 % (19-41); Mean Corp Hgb Conc 31.9 g/dL (32-36); Mean Corpuscular Hgb 29.3 pg (27.0-32.0); Mean Corpuscular Volume 92.1 fL (81-99); Mean Platelet Vol. 10.7 fl (6.2-12.0); Monocyte# 0.24 X10^3/uL; Monocyte% 2.3 % (0-10); NRBC Flagged by Analyzer 0 % (0-5); Neutrophil # 9.57 X10^3/uL (2.7-7.7); Neutrophil % 90.2 % (47-70); Platelet Count 129 K/mm3 (150-450); RBC Distribution Width CV 13.7 % (11.6-14.6); RBC Distribution Width SD 46.7 fl (35.1-43.9); Red Blood Count 4.43 M/mm3 (4.2-5.4); White Blood Count 10.6 K/mm3 (4.4-11.0)
[2024-08-03 07:26] LABS: Anion Gap 7 (5-15); BUN 17 mg/dL (7-18); BUN/Creat Ratio 21.8 RATIO (10-20); Calcium,Total 9.3 mg/dL (8.5-10.1); Chloride 109 mmol/L (98-107); Creatinine, Serum 0.78 mg/dL (0.55-1.02); EST Glomerular Filtration Rate 74 mL/min (>60); Est Glom Filt Rate - Afr Amer 90 mL/min (>60); Estimated Creatinine Clearance 58.71 ml/min; Glucose 150 mg/dL (74-106); Potassium 3.6 mmol/L (3.5-5.1); Sodium Level 140 mmol/L (136-145)
[2024-08-03] MEDS: Pantoprazole Sodium 20 MG Tablet PO (09:10)
[2024-08-03] MEDS: amLODIPine 5 MG Tablet PO (09:10)
[2024-08-03] MEDS: guaiFENesin 1,200 MG Tablet 1200 MG PO ×2 (09:11→21:14)
[2024-08-03] MEDS: Aspirin 81 MG TAB.CHEW PO (09:11)
[2024-08-03] MEDS: Metoprolol Tartrate 25 MG Tablet 12.5 MG PO ×2 (09:11→21:13)
[2024-08-03] MEDS: Loratadine 10 MG Tablet PO (09:11)
[2024-08-03] MEDS: Ceftriaxone 2 GM in 0.9% Normal Saline (50mL MB+) 50 ML IV (09:11)
[2024-08-03] MEDS: Menthol/Lanolin/Calamine/Znox 113 GM Tube 1 APPLIC TOPICAL ×2 (09:12→21:14)
[2024-08-03] MEDS: Nystatin Powder 15gm Bottle 1 APPLIC TOPICAL ×2 (09:12→21:14)
[2024-08-03] MEDS: Acetaminophen 325 MG Tablet 650 MG PO (09:18)
[2024-08-03] MEDS: 0.9% Saline Lock 10 ML Syringe IV (09:19)
[2024-08-03] MEDS: 0.9% Normal Saline (100mL Bag) 100 ML 15 ML IV (09:19)
[2024-08-03] MEDS: Enoxaparin 40 MG/0.4 ML Syringe SC (10:56)
[2024-08-03] MEDS: Azithromycin 500 MG in 0.9% Normal Saline (250mL Bag) 250 ML 255 MG IV (10:56)
--- NOTE | 2024-08-03 12:47 | PN_ITS ---
Subjective Subjective Patient seen and examined. She was working with therapy. She said she felt better. Her shortness of breath had improved. She remains on 2L of oxygen. Review of systems is otherwise negative. Objective Data Objective Data Vital Signs: Vital Signs Temp Pulse Resp BP Pulse Ox O2 Del Method O2 Flow Rate 98.0 F 89 18 134/57 H 95 Nasal Cannula 2 08/03/24 09:02 08/03/24 12:40 08/03/24 12:40 08/03/24 09:02 08/03/24 09:02 08/03/24 10:00 08/03/24 10:01 Oxygen Flow Rate (L/min) 2 Oxygen Delivery Method Nasal Cannula Weight: 217 lb 9.54 oz Body Mass Index (BMI) 35.8 Intake & Output: Intake and Output for Last 24 Hours 08/01/24 08/02/24 08/03/24 23:59 23:59 23:59 Intake Total 300 / 300 426.5 / 426.5 Balance 300 / 300 426.5 / 426.5 Lab / Micro Data 08/03/24 05:50 08/03/24 05:50 Labs: Laboratory Results - last 24 hr 08/03/24 05:50: WBC 10.6, RBC 4.43, Hgb 13.0, Hct 40.8, MCV 92.1, MCH 29.3, MCHC 31.9 L, RDW Std Deviation 46.7 H, RDW Coeff of Viri 13.7, Plt Count 129 L, MPV 10.7, Immature Gran % (Auto) 0.800, Neut % (Auto) 90.2 H, Lymph % (Auto) 6.6 L, [place] % (Auto) 2.3, Eos % (Auto) 0.0, Baso % (Auto) 0.1, Absolute Neuts (auto) 9.6 H, Absolute Lymphs (auto) 0.70 L, Nucleated RBC % 0, Sodium 140, Potassium 3.6, Chloride 109 H, Carbon Dioxide 24.0, Anion Gap 7, BUN 17, Creatinine 0.78, Estim Creat Clear Calc 58.71, Est GFR (MDRD) Af Amer 90, Est GFR (MDRD) Non-Af 74, BUN/Creatinine Ratio 21.8 H, Glucose 150 H, Calcium 9.3 Micro: Microbiology 08/02/24 18:08 Sputum, Expectorated/Coughed Gram Stain - Final 08/02/24 21:10 Mucosa - Nasopharyngeal Respiratory Panel (PCR) - Final 08/02/24 18:08 Urine, Clean Catch Streptococcus pneumoniae Antigen (M - Final 08/02/24 18:08 Urine, Clean Catch Legionella Antigen - Final Physical Exam Const alert, oriented x3, no apparent distress and well nourished General Appearance: cooperative and well developed HEENT normocephalic, head/scalp atraumatic, moist oral mucous membranes and oropharynx normal Eyes PERRL and EOMs intact bilaterally Neck no lymphadenopathy, supple and no JVD Lymph Lymphatic: no lymphadenopathy noted and no lymphedema noted Resp Resp Narrative: mildly diminished breath sounds bibasally, no wheezes, few crackles. On 2L of oxygen. Cardio regular rate, regular rhythm, S1 normal heart sound, S2 normal heart sound and no murmurs GI normal to inspection, nondistended, normoactive bowel sounds, soft to palpation, non-tender and non-distended Extremity normal capillary refill, no clubbing, cyanosis or edema and no calf tenderness General Extremity: no tenderness to palpation of joints or extremities Skin General Skin Exam: no breakdown Neuro CN's II-XII intact bilaterally, no focal motor deficits and no sensory deficits noted Motor Exam: strength 5/5 throughout and general weakness Psych thought process normal, cooperative and affect normal Appearance: appropriate Assessment & Plan Assessment/Plan (1) Pneumonia: PLAN: Plan #Hypoxia due to community acquired pneumonia * Currently on 2 L of oxygen. Feels like her symptoms have improved. * On IV ceftriaxone and azithromycin. Breathing treatments bronchodilators. Titrate oxygen to maintain saturation above 90%. * Urine. On Legionella negative. #Hypothyroidism: On Synthroid #Hyperlipidemia: On statin #Hypertension: On amlodipine and metoprolol. #History of CAD: On aspirin and statin and beta-mirian. Does not have any stents in place. DVT prophylaxis: Lovenox Charges/Coding Visit Charges Inpatient E&M: 57219 Subs Hosp L2
[2024-08-03] MEDS: Atorvastatin Calcium 40 MG Tablet PO (21:13)
[2024-08-04] VITALS (8 sets, daily range): BP systolic 112–134; BP diastolic 51–85; PULSE 62–81; RESP 16–18; TEMP 36.4–36.8; O2SAT 95–99
[2024-08-04] MEDS: Levothyroxine 100 MCG Tablet PO (05:04)
[2024-08-04] MEDS: 0.9% Saline Lock 10 ML Syringe IV ×2 (05:05→09:45)
[2024-08-04] MEDS: Ipratropium/Albuterol Sulfate 3 ML AMPUL.NEB INHALATION ×2 (07:20→20:25)
[2024-08-04 08:42] LABS: Absolute Lymphocyte Count 2.08 X10^3/uL (0.83-4.51); Absolute Neutrophil Count 7.7 X10^3/uL (2.0-7.7); Basophil# 0.06 X10^3/uL; Basophil% 0.6 % (0-1); Eosinophil# 0.07 X10^3/uL; Eosinophils% 0.7 % (0-5); Hematocrit 43.4 % (37-47); Hemoglobin 13.7 g/dL (12.0-15.0); Lymphocyte # 2.08 X10^3/ul (0.83-4.51); Lymphocyte % 19.3 % (19-41); Mean Corp Hgb Conc 31.6 g/dL (32-36); Mean Platelet Vol. 10.5 fl (6.2-12.0); Monocyte% 7.4 % (0-10); NRBC Flagged by Analyzer 0 % (0-5); Neutrophil # 7.67 X10^3/uL (2.7-7.7); Neutrophil % 71.3 % (47-70); Platelet Count 142 K/mm3 (150-450); RBC Distribution Width CV 14.1 % (11.6-14.6); RBC Distribution Width SD 49.2 fl (35.1-43.9); Red Blood Count 4.57 M/mm3 (4.2-5.4); White Blood Count 10.8 K/mm3 (4.4-11.0)
[2024-08-04 08:51] LABS: Anion Gap 9 (5-15); BUN 23 mg/dL (7-18); BUN/Creat Ratio 29.7 RATIO (10-20); Calcium,Total 9.3 mg/dL (8.5-10.1); Chloride 108 mmol/L (98-107); Creatinine, Serum 0.77 mg/dL (0.55-1.02); EST Glomerular Filtration Rate 75 mL/min (>60); Est Glom Filt Rate - Afr Amer 91 mL/min (>60); Estimated Creatinine Clearance 58.71 ml/min; Glucose 95 mg/dL (74-106); Potassium 3.8 mmol/L (3.5-5.1); Sodium Level 143 mmol/L (136-145)
[2024-08-04] MEDS: Ceftriaxone 2 GM in 0.9% Normal Saline (50mL MB+) 50 ML IV (09:44)
--- NOTE | 2024-08-04 10:26 | NURSING ---
DENG Valentino/ SUSAN STUDENT INSTRUCTOR THAT THEY WILL GIVE MEDS.
[2024-08-04] MEDS: amLODIPine 5 MG Tablet PO (10:45)
[2024-08-04] MEDS: Pantoprazole Sodium 20 MG Tablet PO (10:46)
[2024-08-04] MEDS: Menthol/Lanolin/Calamine/Znox 113 GM Tube 1 APPLIC TOPICAL ×2 (10:46→23:33)
[2024-08-04] MEDS: Aspirin 81 MG TAB.CHEW PO (10:46)
[2024-08-04] MEDS: Metoprolol Tartrate 25 MG Tablet 12.5 MG PO ×2 (10:47→23:31)
[2024-08-04] MEDS: Loratadine 10 MG Tablet PO (10:47)
[2024-08-04] MEDS: guaiFENesin 1,200 MG Tablet 1200 MG PO ×2 (10:48→23:32)
[2024-08-04] MEDS: Nystatin Powder 15gm Bottle 1 APPLIC TOPICAL ×2 (10:48→23:33)
[2024-08-04] MEDS: Azithromycin 500 MG in 0.9% Normal Saline (250mL Bag) 250 ML 255 MG IV (10:53)
[2024-08-04] MEDS: Enoxaparin 40 MG/0.4 ML Syringe SC (10:53)
[2024-08-04] MEDS: 0.9% Normal Saline (100mL Bag) 100 ML 15 ML IV (10:53)
--- NOTE | 2024-08-04 11:24 | CASEMGMT ---
ASHA FINLEY Assessment: Face to Face with pt for initial transition planning/care coordination assessment. ASHA FINLEY introduced self and role at [facility], pt voices understanding and consents to assessment. Pt is A&O x4 and answers all questions appropriately at this time. Pt sitting up in bed in no distress. Care providers, pharmacy, and demographics verified/updated. Strata: 1 Admitting Dx: R Pneumonia PCP: Dhaval Specialists: KAYLA Preferred [facility]acy: [facility] Insurance: [facility] Prescription Benefit: yes LNOK: Daughter, Piper; Son, Trevor Living Arrangements: Pt lives alone, son lives close by. Pt lives in a 1 story home with 2 steps to enter. ADLs: Pt I at baseline. Transportation: Pt drives self, but getting less comfortable with driving so has neighbor provide transportation sometimes. DME: cane, walker HHC/SNF: Denies Hx of. Pt states no concerns with going home at time of dc. Pt 6 clicks = 21. RN MALIA discussed possible O2 needs at time of DC, provided verbal list of DME providers. Pt chose [facility] for DME provider of choice. Discussed additional therapy at time of DC, pt would like to get HHC services. RN MALIA informed RN CM on floor. Pt states no further concerns/needs. CM to follow. Advised pt to ask CM if any further question/concerns/needs arise, voices understanding. Pt Goal: Home Plan: Home with HHC services, follow for O2 needs. Vandana BARRY CM
--- NOTE | 2024-08-04 13:17 | CASEMGMT ---
Discharge Planning A list of?HH providers including quality and resource use data and consistent with the patient's preferred geographic region, medical needs, and insurance network was created in [employer] Guide.? This list was provided to the RN MALIA. Madyson Fernandez, Discharge Planning Asst.
--- NOTE | 2024-08-04 14:12 | PN.HOSP_ITS ---
Reason for Visit Reason for Visit: Diagnoses Pneumonia, unspecified organism (08/02/24) Subjective Subjective Patient sitting up in chair, reports she is feeling significantly better than she was, still little bit weak but this is improving and she is only requiring minimal assistance today to bathroom Objective Data Objective Data Vital Signs: Vital Signs Temp Pulse Resp BP Pulse Ox O2 Del Method O2 Flow Rate 97.6 F L 76 16 118/51 L 95 Nasal Cannula 2 08/04/24 13:52 08/04/24 13:52 08/04/24 13:52 08/04/24 13:52 08/04/24 13:52 08/04/24 13:54 08/04/24 13:54 Oxygen Flow Rate (L/min) 2 Oxygen Delivery Method Nasal Cannula Weight: 98.7 kg Body Mass Index (BMI) 35.8 Intake & Output: Intake and Output for Last 24 Hours 08/02/24 08/03/24 08/04/24 23:59 23:59 23:59 Intake Total 300 / 300 426.5 / 426.5 555 / 555 Balance 300 / 300 426.5 / 426.5 555 / 555 Lab / Micro Data 08/04/24 08:03 08/04/24 08:03 Labs: Laboratory Results - last 24 hr 08/04/24 08:03: WBC 10.8, RBC 4.57, Hgb 13.7, Hct 43.4, MCV 95.0, MCH 30.0, MCHC 31.6 L, RDW Std Deviation 49.2 H, RDW Coeff of Viri 14.1, Plt Count 142 L, MPV 10.5, Immature Gran % (Auto) 0.700, Neut % (Auto) 71.3 H, Lymph % (Auto) 19.3, [place] % (Auto) 7.4, Eos % (Auto) 0.7, Baso % (Auto) 0.6, Absolute Neuts (auto) 7.7, Absolute Lymphs (auto) 2.08, Nucleated RBC % 0, Sodium 143, Potassium 3.8, Chloride 108 H, Carbon Dioxide 26.0, Anion Gap 9, BUN 23 H, Creatinine 0.77, Estim Creat Clear Calc 58.71, Est GFR (MDRD) Af Amer 91, Est GFR (MDRD) Non-Af 75, BUN/Creatinine Ratio 29.7 H, Glucose 95, Calcium 9.3 Micro: Microbiology 08/02/24 18:08 Sputum, Expectorated/Coughed Gram Stain - Final 08/02/24 18:08 Sputum, Expectorated/Coughed Respiratory Culture - Preliminary Appears to be normal respiratory nataly. Further studies to follow. 08/02/24 21:10 Mucosa - Nasopharyngeal Respiratory Panel (PCR) - Final 08/02/24 18:08 Urine, Clean Catch Streptococcus pneumoniae Antigen (M - Final 08/02/24 18:08 Urine, Clean Catch Legionella Antigen - Final Physical Exam Narrative General: Alert, oriented, no apparent distress HEENT: Atraumatic, normocephalic Eyes: Anicteric, normal conjunctiva, extraocular movements grossly intact Neck: Supple Respiratory: Improving respiratory effort, no significant rhonchi or wheezes today Cardiovascular: Regular rate GI: Soft, nontender, nondistended Extremities: No pitting edema Musculoskeletal: Moving all extremities Neuro: No overt focal neurological deficits Skin: No rashes appreciated Psych: Cooperative Assessment & Plan Assessment/Plan (1) Pneumonia: PLAN: Plan #Community-acquired pneumonia -Imaging: Chest x-ray with right sided pneumonia at outlying facility -DuoNebs and as needed albuterol -Sputum culture, COVID negative, respiratory panel ordered -Urine antigens -Mucinex, I/S -Rocephin and azithromycin -08/04: Patient has continued to improve on Rocephin and azithromycin, suspect patient will be ready to be seen 1 to 2 days, continue antibiotics, continue nebs Chronic medical problems: # History of mild coronary artery disease -On heart cath in 2019 -Continue aspirin and statin and beta-mirian -Follows with Dr. Nunn, last seen 05/20/2024 # Mixed hyperlipidemia -Patient's lipids were at goal on 05/05/2024 on atorvastatin 40, will continue #Hypertension -Patient had her amlodipine decreased in May due to some lightheaded spells -Continue amlodipine and metoprolol with holding parameters -08/04: Patient reports she supposed to be on Lasix but had not been taking it, she is agreeable now so we will resume where supposed to be her home Lasix at 20 mg every other day with first dose today #GERD -Continue PPI #Hypothyroidism -Continue Synthroid #Seasonal allergies -Continue home loratadine #DVT ppx: Lovenox subq Daniela Tarango MD Time spent in the patient's overall evaluation,decision-making process, review of diagnostic data, adjustment of management, discussion with other providers, nursing nursing and ancillary staff involved in patient's care documentation, 35 Minutes Charges/Coding Visit Charges Inpatient E&M: 97360 Subs Hosp L2
--- NOTE | 2024-08-04 14:27 | CHAPLAIN ---
Type of Pastoral Visit _x__ Initial Visit ___ Follow-up Visit ___ On-call Visit ___ General Patient Visit ___ Spiritual Assessment ___ Family Conference ___ Bereavement ___ Rapid Response ___ Code Blue ___ Other (describe below) Pastoral Care Referral From _x__ Patient ___ Family ___ Nurse ___ Physician ___ Manager Hematology ___ Veterans Service Officer ___ Other (describe below) Sacrament/Intervention _x__ Active listening ___ Anointing ___ Jewish ___ Bereavement ___ Communion _x__ Nida exploration ___ ___ Life review _x__ Prayer ___ Reconciliation ___ Sacrament of Sick _x__ Supportive presence ___ Wedding ___ Other (describe below) Pastoral Comments patient is asked about her situation and her needs; pt reports doing better and is expecting to be able to go home tomorrow; pt reports that she likes her home situation, living alone, but having her children close by; pt is connected to a local hinduism and reflects a positive attitude about her future; pt welcomes a prayer for support
[2024-08-04] MEDS: Furosemide 20 MG Tablet PO (14:36)
--- NOTE | 2024-08-04 14:54 | CASEMGMT ---
ASHA FINLEY provided pt with a HHC list created by wendie giraldo. Pt to review and ASHA FINLEY to check back. Pt aware to chose her top 3 preferences.
[2024-08-04] MEDS: MELATONIN 3 MG TABLET PO (23:32)
[2024-08-04] MEDS: Atorvastatin Calcium 40 MG Tablet PO (23:32)
[2024-08-05] VITALS (8 sets, daily range): BP systolic 127–136; BP diastolic 57–87; PULSE 65–90; RESP 12–20; TEMP 36.3–36.9; O2SAT 81–98
[2024-08-05] MEDS: Ipratropium/Albuterol Sulfate 3 ML AMPUL.NEB INHALATION ×3 (00:15→13:14)
[2024-08-05] MEDS: Levothyroxine 100 MCG Tablet PO (04:33)
[2024-08-05 05:42] LABS: Hematocrit 40.1 % (37-47); Hemoglobin 12.6 g/dL (12.0-15.0); Mean Corp Hgb Conc 31.4 g/dL (32-36); Mean Corpuscular Hgb 29.9 pg (27.0-32.0); Mean Platelet Vol. 10.7 fl (6.2-12.0); Platelet Count 126 K/mm3 (150-450); RBC Distribution Width CV 14.4 % (11.6-14.6); Red Blood Count 4.22 M/mm3 (4.2-5.4); White Blood Count 8.4 K/mm3 (4.4-11.0)
[2024-08-05 05:59] LABS: Anion Gap 7 (5-15); BUN 26 mg/dL (7-18); BUN/Creat Ratio 33.5 RATIO (10-20); Calcium,Total 8.9 mg/dL (8.5-10.1); Chloride 108 mmol/L (98-107); Creatinine, Serum 0.78 mg/dL (0.55-1.02); EST Glomerular Filtration Rate 75 mL/min (>60); Est Glom Filt Rate - Afr Amer 90 mL/min (>60); Estimated Creatinine Clearance 58.71 ml/min; Glucose 103 mg/dL (74-106); Sodium Level 142 mmol/L (136-145)
[2024-08-05] MEDS: Aspirin 81 MG TAB.CHEW PO (08:43)
--- NOTE | 2024-08-05 10:42 | CASEMGMT ---
Addendum entered by Charo Dorsey 08/05/24 12:50: [facility] has accepted pt for services to start on . RN CM to follow home oxygen qualification. Original Note: DC safety admin assistant obtained pt preferences for HH of 1. [facility] 2. [facility]. TC to Jessica at [facility], left message with referral. Pt to dc this date.
[2024-08-05] MEDS: guaiFENesin 1,200 MG Tablet 1200 MG PO (12:22)
[2024-08-05] MEDS: amLODIPine 5 MG Tablet PO (12:22)
[2024-08-05] MEDS: Pantoprazole Sodium 20 MG Tablet PO (12:22)
[2024-08-05] MEDS: Nystatin Powder 15gm Bottle 1 APPLIC TOPICAL (12:23)
[2024-08-05] MEDS: Enoxaparin 40 MG/0.4 ML Syringe SC (12:23)
[2024-08-05] MEDS: Menthol/Lanolin/Calamine/Znox 113 GM Tube 1 APPLIC TOPICAL (12:23)
[2024-08-05] MEDS: Loratadine 10 MG Tablet PO (12:23)
[2024-08-05] MEDS: Metoprolol Tartrate 25 MG Tablet 12.5 MG PO (12:26)
--- NOTE | 2024-08-05 12:28 | DCINST_ITS ---
Discharge Instructions Diet Discharge Diet: - (Resume home diet) DC O2, CPAP, BIPAP needs Home O2 Discharge instructions: No Dressing / Incision Discharge Activity: - (Increase activity as tolerated) Follow Up Care Test Results: Test results from this visit will be discussed in further detail at your follow- up appointment, if applicable. Discharge Plan Admission Admit Date/Time: 08/02/24 16:24 Primary Reason for Your Visit: Shortness of breath Attending Provider: Daniela Tarango Primary Care Provider: Ginger Puentes Consulting Providers: Daniela Tarango; Susanne Healy Instructions Patient Instructions: ED Pneumonia (Adult) Additional Instructions / Restrictions: DISCHARGE INSTRUCTIONS PLEASE READ *Please take this with you to your next doctors appointment* -You will be discharged on 2 more days of antibiotics for pneumonia, you will take your first dose tomorrow and take this twice daily for 2 days -Please call your primary care provider's office upon discharge to schedule a hospital follow up within 1 week. -For any concerning signs or symptoms please call 911 or proceed to the nearest emergency department Discharge Orders/Prescriptions Prescriptions: New amoxicillin-pot clavulanate 875-125 mg tablet 1 tab PO BID 2 Days Qty: 4 0RF Continued cholecalciferol (vitamin D3) 1,000 unit tablet 1,000 unit PO DAILY aspirin 81 mg tablet,chewable 81 mg PO DAILY Qty: 1 0RF calcium-vitamin D3-vitamin K [Viactiv] 650 mg-12.5 mcg-40 mcg tablet,chewable 1 tab PO DAILY levothyroxine 100 mcg tablet 12.5 mcg PO BID furosemide [Lasix] 20 mg tablet 20 mg PO Q OTHER DAY amlodipine 5 mg tablet 5 mg PO QDAY Qty: 90 3RF loratadine 10 mg tablet 10 mg PO DAILY atorvastatin 40 MG tablet 40 mg PO QHS metoprolol tartrate 25 MG tablet 12.5 mg PO BID omeprazole 20 MG tablet,delayed release (DR/EC) 20 mg PO DAILY Referrals / Follow Up: Ginger Puentes, INDUSTRIAL ENGINEERING INTERN-C [Primary Care Provider] - Within 1 Week Disposition Disposition (needs filled in before D/C Order can be placed): Home Health Service
[2024-08-05] MEDS: 0.9% Saline Lock 10 ML Syringe IV (12:33)
--- NOTE | 2024-08-05 12:34 | PCM.DC.SUM ---
Providers Date of Admission: 08/02/24 Date of Discharge: 08/05/24 Primary Care Physician: Ginger Puentes, LIGIA-C Reason For Visit: RIGHT PNUEMONIA Diagnosis Discharge Diagnosis (1) Pneumonia: Status: Acute Code(s): J18.9 - Pneumonia, unspecified organism Plan #Community-acquired pneumonia # History of mild coronary artery disease # Mixed hyperlipidemia #Hypertension #GERD #Hypothyroidism #Seasonal allergies Medications at Discharge Home Medications cholecalciferol (vitamin D3) 25 mcg (1,000 unit) tablet 1,000 unit PO DAILY supplement 05/27/18 atorvastatin 40 mg tablet 40 mg PO QHS cholesterol 07/12/18 metoprolol tartrate 25 mg tablet 12.5 mg PO BID bp/heart 07/12/18 omeprazole 20 mg tablet,delayed release 20 mg PO DAILY gerd 07/12/18 loratadine 10 mg tablet 10 mg PO DAILY allergies 08/29/18 aspirin 81 mg chewable tablet 81 mg PO DAILY heart health #1 TAB 07/07/20 calcium 650 mg-vitamin D3 12.5 mcg-vitamin K 40 mcg chewable tablet (Viactiv) 1 tab PO DAILY supplement 04/06/22 levothyroxine 100 mcg tablet 12.5 mcg PO BID thyroid 04/06/22 amlodipine 5 mg tablet 5 mg PO QDAY high blood pressure #90 tabs 05/20/24 furosemide 20 mg tablet (Lasix) 20 mg PO Q OTHER DAY water pill 05/20/24 amoxicillin 875 mg-potassium clavulanate 125 mg tablet 1 tab PO BID 2 days #4 tabs 08/05/24 Hospital Course Summary of Care Provided Minutes Spent on Discharge: 31 Hospital Course: JUAN DAVID LIRA, is a 84-year-old female with history of hypothyroidism, GERD, mild nonobstructive coronary artery disease presented to [place] ER with complaints of shortness of breath and cough for 1 week. Chest x-ray showed a right-sided pneumonia and patient was requiring 2 L O2. COVID/flu/RSV negative. Patient's pH was 7.14 with pCO2 of 44. Vitals in [place] ED showed a sat of 95% on 2 L, BP 150/80, respiratory rate of 18. BMP with sodium of 144, potassium 4.3, chloride 108, creatinine 0.7. CBC with white count of 17.2, hemoglobin 14, platelets 127. Given patient follows with Dr. Nunn and has seen Dr. Novoa before and family is close to [place], family requested patient be transferred to [facility]. Patient was accepted in transfer and admitted to our floor. Patient was placed on nebs with community-acquired pneumonia coverage, she did well with respiratory status improving. Also it was reported she supposed be on Lasix 20 mg every other day orally at home which she was agreeable to starting here so this was started. On day of discharge patient feeling much better, feels comfortable going home and was able to get up and move around with nurse and did not need placement in [facility] facility. Patient without any hypoxia at rest, is going to require temporary 3 L O2 with ambulation. Discharge instructions as follows: -You will be discharged on 2 more days of antibiotics for pneumonia, you will take your first dose tomorrow and take this twice daily for 2 days -Please call your primary care provider's office upon discharge to schedule a hospital follow up within 1 week. -For any concerning signs or symptoms please call 911 or proceed to the nearest emergency department Physical Exam Narrative General: Alert, oriented, no apparent distress HEENT: Atraumatic, normocephalic Eyes: Anicteric, normal conjunctiva, extraocular movements grossly intact Neck: Supple Respiratory: Normal respiratory effort without any significant wheezes or rhonchi Cardiovascular: Regular rate GI: Soft, nontender, nondistended Extremities: No pitting edema Musculoskeletal: Moving all extremities Neuro: No overt focal neurological deficits Skin: No rashes appreciated Psych: Cooperative Weight / BMI Weight Weight: 98.7 kg Body Mass Index (BMI) 35.8 ABG / Lab / Microbiology Data 08/05/24 05:10 08/05/24 05:10 Laboratory: Laboratory Results - last 24 hr 08/05/24 05:10: WBC 8.4, RBC 4.22, Hgb 12.6, Hct 40.1, MCV 95.0, MCH 29.9, MCHC 31.4 L, RDW Std Deviation 50.0 H, RDW Coeff of Viri 14.4, Plt Count 126 L, MPV 10.7, Sodium 142, Potassium 4.0, Chloride 108 H, Carbon Dioxide 27.0, Anion Gap 7, BUN 26 H, Creatinine 0.78, Estim Creat Clear Calc 58.71, Est GFR (MDRD) Af Amer 90, Est GFR (MDRD) Non-Af 75, BUN/Creatinine Ratio 33.5 H, Glucose 103, Calcium 8.9 Microbiology: Microbiology 08/02/24 18:08 Sputum, Expectorated/Coughed Gram Stain - Final 08/02/24 18:08 Sputum, Expectorated/Coughed Respiratory Culture - Final Mixed normal respiratory nataly. No Streptococcus pneumoniae, beta-hemolytic Streptococcus or Staphylococcus aureus isolated. 08/02/24 21:10 Mucosa - Nasopharyngeal Respiratory Panel (PCR) - Final 08/02/24 18:08 Urine, Clean Catch Streptococcus pneumoniae Antigen (M - Final 08/02/24 18:08 Urine, Clean Catch Legionella Antigen - Final D/C Instructions Discharge Diet: - (Resume home diet) DC O2, CPAP, BIPAP Needs Home O2 Discharge instructions: Yes Type of respiratory needs?: Oxygen Oxygen frequency: With Ambulation Oxygen liters per minute during Ambulation: 3 DC home with Oxygen: Yes Home O2 MD Review: I have reviewed the oxygen testing, and the patient qualifies for home oxygen equipment and portability. The patient is mobile in the home and the community. Meaningful Use Info Meaningful Use Meaningful Use Diagnoses (Choose all that apply): None applicable Ischemic Stroke Statin Dosing Therapy Reference: STATIN DOSE THERAPY REFERENCE: * Patients > 75 years receive moderate or high dose statin therapy. * Patients 75 years or YOUNGER should receive HIGH intensity statin dose unless contraindicated. You will be required to document reason for non-treatment if statin daily dose does not meet guidelines. HIGH DOSE STATIN THERAPY DAILY Atorvastatin > than or = to 40 mg Rosuvastatin > than or = to 20 mg Amlodipine + Atorvastatin > than or = to 2.5/40 mg Ezetimibe + Simvastatin 10/80 mg Simvastatin 80mg Discharge Plan Admission Admit Date/Time: 08/02/24 16:24 Primary Reason for Your Visit: Shortness of breath Attending Provider: Daniela Tarango Primary Care Provider: Ginger Puentes Consulting Providers: Daniela Tarango; Susanne Healy Instructions Patient Instructions: ED Pneumonia (Adult) Additional Instructions / Restrictions: DISCHARGE INSTRUCTIONS PLEASE READ *Please take this with you to your next doctors appointment* -You will be discharged on 2 more days of antibiotics for pneumonia, you will take your first dose tomorrow and take this twice daily for 2 days -You will be discharged on short-term oxygen, 3 L with ambulation -Please call your primary care provider's office upon discharge to schedule a hospital follow up within 1 week. -For any concerning signs or symptoms please call 911 or proceed to the nearest emergency department Discharge Orders/Prescriptions Prescriptions: New amoxicillin-pot clavulanate 875-125 mg tablet 1 tab PO BID 2 Days Qty: 4 0RF Continued cholecalciferol (vitamin D3) 1,000 unit tablet 1,000 unit PO DAILY aspirin 81 mg tablet,chewable 81 mg PO DAILY Qty: 1 0RF calcium-vitamin D3-vitamin K [Viactiv] 650 mg-12.5 mcg-40 mcg tablet,chewable 1 tab PO DAILY levothyroxine 100 mcg tablet 12.5 mcg PO BID furosemide [Lasix] 20 mg tablet 20 mg PO Q OTHER DAY amlodipine 5 mg tablet 5 mg PO QDAY Qty: 90 3RF loratadine 10 mg tablet 10 mg PO DAILY atorvastatin 40 MG tablet 40 mg PO QHS metoprolol tartrate 25 MG tablet 12.5 mg PO BID omeprazole 20 MG tablet,delayed release (DR/EC) 20 mg PO DAILY Referrals / Follow Up: Ginger Puentes, CONSUMER CREDIT COUNSELOR-C [Primary Care Provider] - Within 1 Week Disposition Disposition (needs filled in before D/C Order can be placed): Home Health Service Charges/Coding Visit Charges Inpatient E&M: 50783 Disch Hosp >30min
[2024-08-05] MEDS: Ceftriaxone 2 GM in 0.9% Normal Saline (50mL MB+) 50 ML IV (12:35)
[2024-08-05] MEDS: Azithromycin 500 MG in 0.9% Normal Saline (250mL Bag) 250 ML 255 MG IV (13:15)
--- NOTE | 2024-08-05 14:12 | NURSING ---
This nurse completed a walking pulse ox resting 94%, while walking patient oxygen destat to 81% without oxygen applied 3L patient spo2 95%. Doctor Sukhdeep notified.
--- NOTE | 2024-08-05 14:31 | CASEMGMT ---
Addendum entered by Charo Dorsey 08/05/24 14:35: ASHA FINLEY into pt room, pt aware that [facility] will see her on . Pt is agreeable to this. Discussed homegoing oxygen instructions with pt as well. She verbalizes understanding. Original Note: Pt qualifies for home oxygen. Referral sent to [facility] via [facility] at this time.
--- NOTE | 2024-08-05 15:07 | DCINST_ITS ---
Discharge Instructions Diet Discharge Diet: - (Resume home diet) DC O2, CPAP, BIPAP needs Home O2 Discharge instructions: Yes Type of respiratory needs?: Oxygen Oxygen frequency: With Ambulation Oxygen liters per minute during Ambulation: 3 Dressing / Incision Discharge Activity: - (Increase activity as tolerated) Follow Up Care Test Results: Test results from this visit will be discussed in further detail at your follow- up appointment, if applicable. Discharge Plan Admission Admit Date/Time: 08/02/24 16:24 Primary Reason for Your Visit: Shortness of breath Attending Provider: Daniela Tarango Primary Care Provider: Ginger Puentes Consulting Providers: Daniela Tarango; Susanne Healy Instructions Patient Instructions: ED Pneumonia (Adult) Additional Instructions / Restrictions: DISCHARGE INSTRUCTIONS PLEASE READ *Please take this with you to your next doctors appointment* -You will be discharged on 2 more days of antibiotics for pneumonia, you will take your first dose tomorrow and take this twice daily for 2 days -You will be discharged on short-term oxygen, 3 L with ambulation -Please call your primary care provider's office upon discharge to schedule a hospital follow up within 1 week. -For any concerning signs or symptoms please call 911 or proceed to the nearest emergency department Discharge Orders/Prescriptions Prescriptions: New amoxicillin-pot clavulanate 875-125 mg tablet 1 tab PO BID 2 Days Qty: 4 0RF Continued cholecalciferol (vitamin D3) 1,000 unit tablet 1,000 unit PO DAILY aspirin 81 mg tablet,chewable 81 mg PO DAILY Qty: 1 0RF calcium-vitamin D3-vitamin K [Viactiv] 650 mg-12.5 mcg-40 mcg tablet,chewable 1 tab PO DAILY levothyroxine 100 mcg tablet 12.5 mcg PO BID furosemide [Lasix] 20 mg tablet 20 mg PO Q OTHER DAY amlodipine 5 mg tablet 5 mg PO QDAY Qty: 90 3RF loratadine 10 mg tablet 10 mg PO DAILY atorvastatin 40 MG tablet 40 mg PO QHS metoprolol tartrate 25 MG tablet 12.5 mg PO BID omeprazole 20 MG tablet,delayed release (DR/EC) 20 mg PO DAILY Referrals / Follow Up: Ginger Puentes, SALES AGENT BUSINESS SERVICES-C [Primary Care Provider] - Within 1 Week Disposition Disposition (needs filled in before D/C Order can be placed): Home Health Service
== END 2024-08-05 15:52 | disposition home health service (06) | DRG 195 ==
PROVIDERS: Admitting Provider Internal Medicine; PCP Nurse Practitioner Family; Visit Provider Internal Medicine
DX: J18.9 Pneumonia, unspecified organism (principal); E03.9 Hypothyroidism, unspecified; I10 Essential (primary) hypertension; I25.10 Atherosclerotic heart disease of native coronary artery without angina pectoris; E78.2 Mixed hyperlipidemia; J30.2 Other seasonal allergic rhinitis; K21.9 Gastro-esophageal reflux disease without esophagitis; Z11.52 Encounter for screening for COVID-19; R09.02 Hypoxemia; Z79.82 Long term (current) use of aspirin; Z79.890 Hormone replacement therapy; Z79.899 Other long term (current) drug therapy
CPT/HCPCS: 36415; 80048; 85025; 85027; 87070; 87205; 87449; 87633; 94640; 94668; 97162; 97166; 97530; A4216; J0696

== ENCOUNTER → 2025-05-14 | Outpatient (CLI) | payer MEDICARE, SELFPAY ==
--- NOTE | 2025-05-14 10:41 | BI_ITS ---
EXAM: SCRN MAMM (CAD)W/VERONICA BILAT DATE: 05/14/2025 CLINICAL HISTORY: F, Age 85 y/o , SCREENING TECHNIQUE: Procedure Code: [id number] Modality: MG Procedure: SCRN MAMM (CAD)W/VERONICA BILAT COMPARISON: Prior exam(s) were compared FINDINGS: TISSUE DENSITY: There are scattered areas of fibroglandular density. Bilateral Breast Mammographic Findings: No significant masses, calcifications or other abnormalities are identified. BI/SCRN MAMM (CAD)W/VERONICA BILAT IMPRESSION: No mammographic evidence of malignancy. OVERALL FINAL ASSESSMENT BI-RADS 1: NEGATIVE. RECOMMENDATION: Routine annual follow-up in 1 Year Additional Recommendation none A letter with findings and recommendations will be mailed to the patient. Reading Location: [id number]
== END | disposition home or self-care (01) ==
PROVIDERS: PCP Nurse Practitioner Family; Referring Provider Nurse Practitioner Family; Visit Provider Nurse Practitioner Family
DX: Z12.31 Encounter for screening mammogram for malignant neoplasm of breast (principal)
CPT/HCPCS: 77063; 77067

== ENCOUNTER → 2025-06-08 | Outpatient (CLI) | payer MEDICARE, SELFPAY ==
--- NOTE | 2025-06-08 10:29 | VDLE_ITS ---
Reason For Study Reason For Study: Right leg pain RIGHT LEFT GSV is normal. GSV is normal. CFV is compressible, spontaneous, phasic, competent CFV is compressible, spontaneous, phasic, competent, and demonstrates normal augmentation. and demonstrates normal augmentation. FV is compressible, spontaneous, phasic, competent FV is compressible, spontaneous, phasic, competent and demonstrates normal augmentation. and demonstrates normal augmentation. POP V is compressible, spontaneous, phasic, competent POP V is compressible, spontaneous, phasic, competent and demonstrates normal augmentation. and demonstrates normal augmentation. T/P Trunk is compressible. T/P Trunk is compressible. PTV is compressible. PTV is compressible. RT PerV is compressible. LT PerV is compressible. Procedure This is a venous duplex using B-mode, color flow and spectral Doppler. Exam performed in department. Technically difficult to visualize bilateral calf veins. A preliminary report was called and/or faxed to Dhaval HOLLAND. VL/Venous Duplex US - Ryan Extrem Interpretation Summary Deep veins of the bilateral lower extremities are patent and compressible segme ntally. There is no evidence of bilateral lower extremity deep vein thrombosis. The bilateral great saphenous veins appea r patent and compressible segmentally. Ordering Physician: Ginger Puentes Referring Physician: Ginger Puentes Performed By: Shaye Stockton RVT
== END | disposition home or self-care (01) ==
LOC: CVS 10:25
PROVIDERS: PCP Nurse Practitioner Family; Referring Provider Nurse Practitioner Family; Visit Provider Nurse Practitioner Family
DX: M79.604 Pain in right leg (principal)
CPT/HCPCS: 93970

== ENCOUNTER → 2025-06-08 | Outpatient (CLI) | payer MEDICARE, SELFPAY ==
[2025-06-08 12:11] LABS: Hematocrit 42.5 % (37-47); Hemoglobin 13.3 g/dL (12.0-15.0); Immature Granulocytes Count 0.020 X10^3/uL (0.0-0.0); Mean Corp Hgb Conc 31.3 g/dL (32-36); Mean Corpuscular Volume 95.1 fL (81-99); Mean Platelet Vol. 9.7 fl (6.2-12.0); NRBC Flagged by Analyzer 0 % (0-5); Platelet Count 173 K/mm3 (150-450); RBC Distribution Width CV 13.3 % (11.6-14.6); RBC Distribution Width SD 46.4 fl (35.1-43.9); Red Blood Count 4.47 M/mm3 (4.2-5.4); White Blood Count 6.8 K/mm3 (4.4-11.0)
[2025-06-08 12:31] LABS: AST(SGOT) 21 U/L (<=31); Alanine Aminotransfer ALT/SGPT 9 U/L (<=34); Albumin, Serum 4.3 g/dL (3.4-4.8); Alkaline Phosphatase 76 U/L (35-104); Anion Gap 10 (7-18); BUN 13 mg/dL (4-19); BUN/Creat Ratio 15.9 RATIO (10-20); Calcium,Total 9.7 mg/dL (7.6-11.0); Carbon Dioxide 27.0 mmol/L (20.0-29.0); Chloride 104 mmol/L (96-106); Cholesterol 114 mg/dL (<=200); Globulin 3.5 g/dL (2.2-4.2); Glucose 104 mg/dL (70-99); Low Density Lipoprotein Calc. 51 mg/dL; Magnesium 2.1 mg/dL (1.5-2.2); Potassium 4.4 mmol/L (3.5-5.1); Triglycerides 97 mg/dL; Very Low Density Lipoprotein 19 mg/dL (5-40); cholesterol:hdl ratio screen 2.53
== END | disposition home or self-care (01) ==
LOC: VSLAB 09:56
PROVIDERS: PCP Nurse Practitioner Family; Referring Provider Nurse Practitioner Family; Visit Provider Nurse Practitioner Family
DX: I10 Essential (primary) hypertension (principal); E78.00 Pure hypercholesterolemia, unspecified; E03.9 Hypothyroidism, unspecified
CPT/HCPCS: 36415; 80053; 80061; 83735; 84443; 85025